=== PATIENT | female | born 1945 | race Caucasian/White ===

== ENCOUNTER 2024-04-15 05:46 | Outpatient (REF) | payer MEDICARE, SELFPAY ==
[2024-04-15 05:52] LABS: MANUAL DIFF FLAG NO
[2024-04-15 06:20] LABS: Basophils Absolute Auto 0.1 X10*3/uL (0.0-0.2); Basophils Percent Auto 2.1 % (0-2); Eosinophils Absolute Auto 0.4 X10*3/uL (0.0-0.4); Eosinophils Percent Auto 8.3 % (0-4); Hematocrit 31.4 % (37.0-47.0); Hemoglobin 10.2 g/dl (12.0-16.0); Imm Gran Abs Auto 0.02 X10*3/uL (0.00-0.03); Imm Gran Pct Auto 0.4 % (0.0-0.4); Lymphocytes Absolute Auto 0.5 X10*3/uL (1.2-4.9); Lymphocytes Percent Auto 9.1 % (20-40); Mean Corpuscular HGB Conc 32.5 g/dl (31.0-35.0); Mean Corpuscular Hemoglobin 31.6 pg (27.0-33.0); Mean Corpuscular Volume 97.2 fL (80.0-98.0); Mean Platelet Volume 10.5 fL (9.4-12.3); Monocytes Absolute Auto 0.7 X10*3/uL (0.1-1.2); Monocytes Percent Auto 13.4 % (2-11); Neutrophils Absolute Auto 3.4 x10*3/uL (2.0-8.3); Neutrophils Percent Auto 66.7 % (45-73); Platelet Count 197 X10*3/uL (160-400); Red Blood Count 3.23 X10*6/uL (4.20-5.50); Red Cell Distribution Width 18.4 % (11.0-16.0); White Blood Count 5.2 X10*3/uL (4.8-10.8)
[2024-04-15 07:14] LABS: Alanine Aminotransferase < 6 U/L (0-31); Albumin Level 3.6 g/dL (3.5-5.0); Alkaline Phosphatase 61 U/L (39-117); Anion Gap 19 (12-20); Aspartate Amino Transferase 28 U/L (5-31); Bilirubin Total 0.7 mg/dL (0.0-1.0); Blood Urea Nitrogen 42 mg/dL (9-16); Calcium 8.9 mg/dL (8.4-10.2); Carbon Dioxide 23 mmol/L (22-29); Chloride 95 mmol/L (96-108); Glucose Random 94 mg/dL (60-115); Potassium 4.8 mmol/L (3.3-5.1); Sodium 132 mmol/L (135-145); Total Protein 5.9 g/dL (6.5-8.0)
[2024-04-15 07:23] LABS: Estimated Glomerular Filt Rate 7
--- OUTSIDE RECORDS SUMMARY | 2024-04-17 12:16 | XMS_ITS | Continuity of Care Document ---
Author Organization [employer] ter Address [address] [place] [id number] Care Team Providers Care Senior Business Consultant Name Role Phone Vernon ANTOINE, Gio Rosales Primary Care Physician Encounter [facility] Date(s): 04/08/24 - 04/13/[address] [id number] Discharge Disposition: A-Transfer SNF Attending Physician: Maci Cheung MD Admitting Physician: Cheryl De Guzman MD Referring Physician: Not on Staff, Referring MD Encounter Type: Disch IP Allergies, Adverse Reactions, Alerts No Known Allergies Immunizations Given and Recorded Vaccine Date Status Refusal Reason influenza virus vaccine, inactivated 02/09/22 Willy rded influenza virus vaccine, inactivated 02/16/21 Willy rded SARS-CoV-2 (COVID-19) Ad26 vaccine 08/07/20 Record ed hepatitis B adult vaccine 04/13/20 Recorded hepatitis B adult vaccine 03/09/20 Recorded hepatitis B adult vaccine 01/20/20 Recorded hepatitis B adult vaccine 10/22/19 Recorded hepatitis B adult vaccine 02/25/19 Recorded hepatitis B adult vaccine 01/23/19 Recorded pneumococcal 13-valent vaccine 01/05/19 Given Medications albuterol CFC free 90 mcg/inh inhalation aerosol 1, puffs, Inhalation, 4 times a day, PRN, # 18 Gm, Refills 0, Tot. Refills 0, Maintenance, 01/20/23 2:29:00 PM EDT, Aerosol, Route to Pharmacy Electronically, [id number], [facility]/pharmacy #[id number], 160, cm, 01/12/23 10:12:00 EDT, Height, 68.4, kg, 01/12/23 10:12:00 EDT, Dry Weight Start Date: 01/20/23 Stop Date: 02/03/23 Status: Ordered Quantity: 18.0 Unit: g Repeat number: 1 aspirin 81 mg oral delayed release tablet 81 mg, 1, tablet, By Mouth, Daily, # 30 tablet, Refills 0, Maintenance, 09/04/23 11:51:00 AM EDT, Partial fill upon patient request if the prescription is for a schedule II opioid drug. Start Date: 09/04/23 Status: Ordered Quantity: 30.0 Unit: tablet Repeat number: 1 Bortezomib See Instructions, weekly at oncology, 0 Refills, Maintenance, 04/08/24 8:39:00 PM EST, Partial fill upon patient request if the prescription is for a schedule II opioid drug. Start Date: 04/08/24 Status: Ordered Repeat number: 1 calcitriol 0.25 mcg oral capsule 1 capsule = 0.25 mcg, By Mouth, Daily, # 30 capsule, 0 Refills, Maintenance, 01/12/23 11:56:00 PM EDT, Capsule, Partial fill upon patient request if the prescription is for a schedule II opioid drug. Start Date: 01/12/23 Status: Ordered Quantity: 30.0 Unit: capsule Repeat number: 1 carvedilol 12.5 mg oral tablet 6.25 mg, Tablet, By Mouth, 04/13/24 9:00:00 AM EST Start Date: 04/13/24 Stop Date: 04/13/24 Status: Completed Repeat number: 1 carvedilol 12.5 mg oral tablet 6.25 mg, 0.5, tablet, By Mouth, Daily, # 135 tablet, Refills 3, Tot. Refills 3, Maintenance, 03/27/23 3:09:00 PM EST, Route to Pharmacy Electronically, [facility]/pharmacy #[id number], Partial fill upon patient request if the prescription is for a schedule II opioid drug., 160, cm, 03/27/23 14:36:00 EST, Height, 63.3, kg, 03/24/23 13:09:00 EST, Dry Weight Start Date: 03/27/23 Stop Date: 03/21/24 Status: Ordered Quantity: 135.0 Unit: tablet Repeat number: 4 clopidogrel 75 mg oral tablet 75 mg, 1, tablet, By Mouth, Daily, # 90 tablet, Refills 0, Maintenance, 01/04/24 1:02:00 PM EDT, Partial fill upon patient request if the prescription is for a schedule II opioid drug. Start Date: 01/04/24 Status: Ordered Quantity: 90.0 Unit: tablet Repeat number: 1 losartan 25 mg oral tablet 25 mg, 1, tablet, By Mouth, Daily, # 30 tablet, Refills 0, Maintenance, 09/04/23 11:52:00 AM EDT, Partial fill upon patient request if the prescription is for a schedule II opioid drug. Start Date: 09/04/23 Status: Ordered Quantity: 30.0 Unit: tablet Repeat number: 1 Pepcid AC Maximum Strength 20 mg oral tablet 20 mg, By Mouth, Daily, # 30 tablet, Refills 1, Tot. Refills 1, Maintenance, 03/09/19 11:50:43 AM EDT, Route to Pharmacy Electronically, [facility] 3 Start Date: 03/09/19 Status: Ordered Quantity: 30.0 Unit: tablet Repeat number: 2 Renvela 800 mg oral tablet = 1,600 mg, By Mouth, 3 times a day with meals, # 90 tablet, 2 Refills, Maintenance, 03/09/19 11:48:58 AM EDT, Tablet, [facility] 3 Start Date: 03/09/19 Status: Ordered Quantity: 90.0 Unit: tablet Repeat number: 3 rosuvastatin 5 mg oral capsule 1 capsule = 5 mg, By Mouth, Daily in AM, # 30 capsule, 0 Refills, Maintenance, 09/04/23 11:52:00 AM EDT, Capsule, Partial fill upon patient request if the prescription is for a schedule II opioid drug. Start Date: 09/04/23 Status: Ordered Quantity: 30.0 Unit: capsule Repeat number: 1 torsemide 20 mg oral tablet 4 tablet = 80 mg, By Mouth, Every Monday, Monday and Monday, TO BE GIVEN ON NON-DIALYSIS DAYS, 0Refills, Maintenance, 04/13/24 2:21:00 PM EST, Tablet, Partial fill upon patient request if the prescription is for a schedule II opioid drug. 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 Confirmed Active ESRD on dialysis Confirmed Active x 4 Confirmed Active History of endometrial cancer Confirmed Active Hyperlipidemia Confirmed Active Hypertension Confirmed Active Multiple myeloma Confirmed Active Troponin level elevated Confirmed Active Results Radiology Reports * Exam Date Time Procedure Performing Provider Status 04/11/24 1:17 PM IR End of Case Report Mod ified IR End of Case Report * Exam Date Time Procedure Performing Provider Status 04/11/24 1:17 PM IR Venogram Upper Extremity Auth (Verified) Notes: (IR Venogram Upper Extremity) Reason For Exam: Evaluate for dialysis access;Other: IR Venogram Upper Extremity Patient: MIMI WRAY Study Date: 04/11/2024 Performing: Luna Espinal MD Referring: : 1945 Age: 78 Gender: FEMALE Pre-procedure diagnosis and Indication: 78-year-old female with history of end-stage renal disease secondary to multiple myeloma who recently underwent placement of a tunneled dialysis catheter via the right internal jugular vein on 04/10/2024 and has been initiated on hemodialysis. She also has history of hypertension, hyperlipidemia and infiltrative cardiomyopathy with reduced EF. Interventional radiology was consulted for bilateral upper extremity venography for evaluation of fistula creation. She also presents for image guided paracentesis due to history of ascites, which may be due to nephrotic syndrome versus cardiogenic cause. She does not have a history of cirrhosis. PROCEDURE: The procedure, risks, and alternatives were discussed with the patient and all questions were answered. Written informed consent obtained. Accompanying paperwork was verified for accuracy. Directed history and physical exam performed prior to the procedure. Medication reconciliation performed by nursing personnel. The patient was brought to the procedure suite and positioned supine on the table. A critical pause was performed with assisting personnel just prior to the procedure with the patient's identity confirmed using 2 identifiers and confirming procedure site and side. Right upper extremity venography: Venography of the right upper extremity was performed by injecting contrast via the IV in the right forearm. The cephalic vein is diminutive in the forearm. The median vein of the forearm and basilic vein are patent. In the arm, the brachial veins and basilic vein are patent. The cephalic vein is not visualized. The axillary and subclavian vein are patent. However, there is no free flow of contrast into the SVC. Although this may be partially related to existing dialysis catheter, this is also suggestive of central venous stenosis or occlusion at the confluence of the right subclavian vein and right internal jugular vein. Left upper extremity venography: Venography of the left upper extremity was performed by injecting contrast via the IV in the left forearm. The brachial and basilic veins are patent. The cephalic vein is patent in the distal arm and there is anastomosis of the cephalic vein with the brachial vein at the mid arm. The axillary and subclavian veins are patent. There is diminished flow through the left brachiocephalic vein into the SVC suggestive of central venous stenosis. However, no evidence of any significant collaterals. Ultrasound-guided paracentesis: Pre procedure limited US of the right abdomen was performed which demonstrates moderate volume ascites. An appropriate site was selected and marked. The skin was draped and prepped in usual sterile fashion. Procedure was performed using a cap, sterile gloves, a large sterile sheet, hand hygiene and 2% chlorhexidine for cutaneous antisepsis. 1% lidocaine was administered for local anesthesia. Under direct ultrasound guidance, a 5 Welsh Yueh needle was advanced into the ascites via the right lower quadrant. Approximately 1250 mL of tiffanie fluid was removed. The Yueh needle catheter was removed. Samples were submitted for the requested studies. Post procedure limited ultrasound images demonstrate significantly decreased ascites and no evidence of hematoma. Hemostasis was achieved and a sterile dressing was applied. The estimated blood loss was minimal. The patient tolerated the procedure well without immediate post procedure complications. The sterile field was maintained throughout the procedure and patient tolerated the procedure well with no complications of the procedure estimated blood loss was minimal Specimens/samples: a sample of abdominal ascites was sent Impression: 1. Right upper extremity venogram demonstrates patent brachial and basilic veins, however the cephalic vein is not visualized. The right axillary and subclavian veins are patent, however there is no free flow of contrast into the SVC. Although this may partially be related to the existing dialysis catheter, this is also suggestive of central venous stenosis or occlusion at the confluence of the right subclavian vein and right internal jugular vein. 2. Left upper extremity venogram demonstrates patent veins in the arm. The left axillary and subclavian veins are patent. There is diminished flow through the left brachiocephalic vein into the SVC suggestive of central venous stenosis. However, no evidence of any significant collaterals. CTV chest can be considered for further evaluation as clinically indicated. 3. Ultrasound-guided paracentesis performed via the right lower quadrant with removal of 1250 mL of tiffanie fluid. Samples were submitted for the requested studies. Fluid drained: 1250 ml's of Yellow fluid Fluoroscopy time and dose Total Fluoro Time: 0.6 mins Total dose 58 mGy Total DAP 1912.0 - ?Gy/m2 Contrast used Contrast used: IsoVue_300 65 Local Anesthetic Lidocaine 1% 7 ml's SQ Signed By Luna Espinal MD On 04/11/2024 5:40:48 PM Luna Espinal MD Dictated By: Luna Espinal MD Dictated Date/Time: 04/11/24 1:17 pm Reviewed By: Luna Espinal MD Signed By: Luna Espinal MD Signed Date/Time: 04/11/24 1:17 pm Transcribed By: BRIELLE Transcribed Date/Time: 04/11/24 1:17 pm * Exam Date Time Procedure Performing Provider Status 04/10/24 12:05 PM C-Arm < 1 Hour Tiffanie Bell; Luciana fiharoldo Notes: (C-Arm < 1 Hour) Reason For Exam: HEMODIALYSIS CATH RESULT: C-Arm < 1 Hour C-Arm < 1 Hour INDICATION: Reason: HEMODIALYSIS CATH COMPARISONS: None TECHNIQUE: Fluoroscopy support was provided. There was no radiologist in attendance. FLUOROSCOPY TIME: 28.4 seconds EXPOSURE: 1.3281 Gycm2 (Dose Area Product) TECHNOLOGIST TIME: 45 minutes FINDINGS: Fluoroscopy support was provided. There was no radiologist in attendance. IMPRESSION: See above. WSN: [id number] Ordering Physician: Arnaldo Alvarez Dictated By: Dale Patel MD Dictated Date/Time: 04/10/24 6:23 pm Reviewed By: Dale Patel MD Signed By: Dale Patel MD Signed Date/Time: 04/10/24 6:23 pm Transcribed By: CSShira Transcribed Date/Time: 04/10/24 4:44 pm * Exam Date Time Procedure Performing Provider Status 04/09/24 4:40 PM US Ascites Sereda , Dayana; Auth (V erified) Notes: (US Ascites) Reason For Exam: Ascites RESULT: US Ascites US Ascites Reason: Ascites; Clinical Question(s): Ascites; Order Comment: US Abdomen Ltd Prep COMPARISON: CT Abdomen and Pelvis 03/15/2024. TECHNIQUE: Grayscale limited abdominal ultrasound of the 4 quadrants. FINDINGS: Moderate volume ascites in all quadrants. Largest pocket in the left lower quadrant. IMPRESSION: Moderate volume ascites. WSN: [id number] Ordering Physician: Eleanor Berry Dictated By: Kendy Glynn MD Dictated Date/Time: 04/09/24 5:00 pm Reviewed By: Kendy Glynn MD Signed By: Kendy Glynn MD Signed Date/Time: 04/09/24 5:00 pm Transcribed By: BRONSON Transcribed Date/Time: 04/09/24 4:46 pm Vital Signs Most recent to oldest [Reference Range]: 1 2 3 Height 160 cm (04/13/24 10:20 AM) 160 cm (04/13/24 2:57 AM) 160 cm (04/12/24 9:20 PM) Weight 60.4 kg (04/13/24 3:01 AM) 59.6 kg (04/12/24 6:49 AM) 61 kg (04/11/24 4:48 AM) Oxygen Saturation [94-100 %] 100 % (04/13/24 10:20 AM) 97 % (04/13/24 2:57 AM) 100 % (04/12/24 9:20 PM) Pulse Rate [55-90 bpm] 75 bpm (04/13/24 11:23 AM) 76 bpm (04/13/24 10:20 AM) 92 bpm *H* (04/13/24 9:36 AM) Body Mass Index [18.5-24.99 kg/m2] 23.83 kg/m2 (04/11/24 4:48 AM) 21.88 kg/m2 (04/10/24 9:20 AM) 21.88 kg/m2 (04/10/24 5:52 AM) Blood Pressure [90-138/55-84 mm Hg] 134/68mm Hg (04/13/24 11:23 AM) 134/68mm Hg (04/13/24 10:20 AM) 142/107mm Hg *H* (04/13/24 9:36 AM) Respiratory Rate [16-30 br/min] 18 br/min (04/13/24 10:20 AM) 22 br/min (04/13/24 9:36 AM) 17 br/min (04/13/24 2:57 AM) Temperature [96.8-100.4 DegF] 97.8 DegF (04/13/24 10:20 AM) 97.8 DegF (04/13/24 9:36 AM) 97.7 DegF (04/13/24 2:57 AM) Liters per Minute 6 L/min (04/10/24 2:00 PM) 6 L/min (04/10/24 1:45 PM) 6 L/min (04/10/24 1:30 PM) Mode of Delivery (Oxygen) Room air (04/13/24 10:20 AM) Room air (04/13/24 2:57 AM) Room air (04/12/24 9:20 PM) Blood pressure sites Arm, left (04/13/24 10:20 AM) Arm, left (04/13/24 2:57 AM) Arm, left (04/12/24 9:20 PM) Temperature Route Oral (04/13/24 10:20 AM) Oral (04/13/24 2:57 AM) Oral (04/12/24 9:20 PM) Dry Weight 56 kg (04/10/24 5:52 AM) 56.3 kg (04/09/24 5:16 AM) Weight Obtained Via Bed scale (04/11/24 4:48 AM) Bed scale (04/10/24 5:52 AM) Bed scale (04/09/24 5:16 AM) Dry Weight Obtained Via Bed scale (04/10/24 5:52 AM) Bed scale (04/09/24 5:16 AM) Social History Social History Type Response Smoking Status Former smoker; Other : late teens early 20's; entered on: 03/25/14 Sex Sex Representation Female (finding) Consult note * Deidre Paul MD: MODIFY, PERFORM, MODIFY Event Display: Consult Authored Date: [id number] Patient: ??MIMI WRAY ? Age:??78 Years?Sex:??Female?:??1945?? Chief Complaint/Reason for Consult PermCath Placement History of Present Illness Mimi is a 78 year old female with a history of ESRD requiring HD TTS, endometrial cancer s/p totalhysterectomy, multiple myeloma??on chemotherapy, HTN,??HLD, and infiltrative cardiomyopathy with reduced EF??who presented to [facility] on 04/08 with concerns of worsening abdominal distention and shortness of breath. Per chart review, patient was previously seen and treated at [facility] from 03/16- with new onset ascites requiring paracentesis on 03/18 with 2.6L serous fluid drained. She was brought to for paracentesis at [place] yesterday, though on arrival to the IRsuite was found to be hypoxic with saturations in the 80s for which she was transferred to [facility]. Here, she has been stable on room air though does have electrolyte imbalances secondary to ESRD. She isdue for dialysis today, for which she was brought to dialysis unit at which point RIJ PermCath was noted to be dislodged from body.??Transplant surgery??has been consulted for PermCath placement.??Patient is unable to recall what happened or if she received dialysis today. She is unable to elicit what happened with her dialysis catheter and when or how it became dislodged.??She does have??food atbedside. Subjective information difficult to obtain, patient shakes her head??in response to most questions. She is responsive though slow to respond and appearing very??lethargic. ?? Review of Systems Limited review of systems per above. Physical Exam Vitals & Measurements T:??97.3?F?? HR:??72??(Peripheral)?? RR:??18?? BP:??121/84?? SpO2:??97%?? HT:??160??cm?? WT:??56.3??kg?? BMI:??21.99?? GENERAL: No acute distress. Non-toxic though appearing very fatigued and confused, slow to respond but is interactive. HEENT: Normocephalic. Atraumatic. Trachea midline. RESPIRATORY: Equal and symmetric chest rise bilaterally; no increased work of breathing. On room air. CHEST: Right sided PermCath insertion site is clean, no evidence of erythema or underlying hematoma. No ecchymosis. Overlying bandage is clean and intact. Soft to palpation. No drainage. ABDOMEN: Soft to palpation. Distended. MUSCULOSKELETAL: Moving all extremities equally. SKIN: Warm and well perfused. NEURO: AOx3 Assessment/Plan Mimi is a 78 year old female with a history of ESRD requiring HD TTS, endometrial cancer s/p totalhysterectomy, multiple myeloma??on chemotherapy, HTN,??HLD, and infiltrative cardiomyopathy with reduced EF??who presented to [facility] on 04/08 with concerns of worsening abdominal distention and shortness of breath. Transplant surgery was consulted for hemodialysis access as her PermCath was found to be dislodged today while going to the dialysis unit. She is hemodynamically stableand afebrile, though she does appear lethargic. She has no leukocytosis, H/H is stable. Hyperkalemic to 6 otherwise electrolytes largely within normal limits. Cr 6.87. We will plan to add her on to the OR board for PermCath placement tomorrow. In the meantime, her hyperkalemia should be treated medically and if the need arises, with temporary dialysis access via [place] while we await OR in AM. ?? Recommendations: - NPO at SD for OR in the AM - Treat hyperkalemia prior to operation - Dialysis post operatively ?? Patient was discussed with Dr. Davis Please page [phone] with questions and concerns. 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 ESRD on dialysis History of endometrial cancer Hyperlipidemia Hypertension Multiple myeloma Nonischemic cardiomyopathy Procedure/Surgical History PRIYANKA-BSO T+A Foot- bunion PermCath placement 01/2023 Home Medications Albuterol: 1 puffs, Inhalation, 4 times a day, PRN (as needed for wheezing) Aspirin: 81 mg = 1 tablet, By Mouth, Daily Bortezomib: See Instructions, weekly at oncology Calcitriol: 0.25 mcg = 1 capsule, By Mouth, Daily Carvedilol: 6.25 mg = 0.5 tablet, By Mouth, Daily Clopidogrel: 75 mg = 1 tablet, By Mouth, Daily Famotidine: 20 mg, By Mouth, Daily Losartan: 25 mg = 1 tablet, By Mouth, Daily Rosuvastatin: 5 mg = 1 capsule, By Mouth, Daily in AM Sevelamer: 1,600 mg, By Mouth, 3 times a day with meals Allergies NKA Social History Alcohol Use: Never. Employment/School Status: Retired. Exercise Self assessment: Good condition. Home/Environment Living situation: Home/Independent. Lives with: Spouse. Nutrition/Health Diet: Regular. Sexual Gender identity: Female. Substance Abuse Use: Never. Tobacco Former smoker, Other: late teens early 20's. Family History Mother: Arrhythmia; Cancer of lung; Thyroid disease Father: Diabetes mellitus type II; Liver disease Other: Liver disease Other: Cancer of breast Lab Results Labs Last 24 Hours BLOOD COUNT & DIFF ? Event Name?? Event Result?? Date/Time?? WBC 7.3 k/mm3 04/09/24 01:52:00 RBC 3.54 m/mm3??Low 04/09/24 01:52:00 Hgb 11.2 Gm/dL??Low 04/09/24 01:52:00 Hct 34.4 %??Low 04/09/24 01:52:00 MCV 97.2 femtoliters 04/09/24 01:52:00 MCH 31.6 pg 04/09/24 01:52:00 MCHC 32.6 Gm/dL??Low 04/09/24 01:52:00 Platelet Count 296 k/mm3 04/09/24 01:52:00 MPV 11.2 femtoliters 04/09/24 01:52:00 Nucleated RBC (Automated) 0 #/100 WBC'S 04/09/24 01:52:00 ? CHEM GENERAL ? Event Name?? Event Result?? Date/Time?? Sodium 136 mmol/L 04/09/24 01:52:00 Chloride 95 mmol/L??Low 04/09/24 01:52:00 Bicarbonate Level 22 mmol/L 04/09/24 01:52:00 Anion Gap 19??High 04/09/24 01:52:00 Glucose Level 107 mg/dL??High 04/09/24 01:52:00 BUN 49 mg/dL??High 04/09/24 01:52:00 Creatinine-Blood 6.87 mg/dL??High 04/09/24 01:52:00 Magnesium 2.6 mg/dL??High 04/09/24 01:52:00 Alkaline Phosphatase 82 units/L 04/09/24 01:52:00 AST (SGOT) 18 units/L 04/09/24 01:52:00 ALT (SGPT) 15 units/L 04/09/24 01:52:00 Bilirubin, Total 0.6 mg/dL 04/09/24 01:52:00 Bilirubin, Direct 0.3 mg/dL 04/09/24 01:52:00 Bilirubin, Indirect 0.3 mg/dL 04/09/24 01:52:00 ? * Kadeem Davis DO: PERFORM Event Display: Consult Authored Date: Patient seen and examined at bedside, chart reviewed and discussed with resident.?? Agree with resident assessment and plan with the following additions.?? Patient treated medically for hyperkalemia.?? Will plan for OR tomorrow for permcath placement.?? NPO after midnight. * Carolyn Parrish NP: PERFORM, MODIFY Event Display: Consultation Note Authored Date: Patient: ??MIMI WRAY ? Age:??78 Years?Sex:??Female?:??1945?? Attending:??Inocencio Peterson MD Admission Date: 04/08/2024 ?? Chief Complaint and Reason for Consultation Assistance with the management of ESRD and HD needs. ?? History of Present Illness Ms. Wray is a 78-year-old female with end-stage renal disease due to multiple myeloma, receiving maintenance in center hemodialysis via tunneled right IJ dialysis catheter every Monday, , Monday in [facility] with advanced systolic heart failure. She presented to [facility] [place]04/08 with a chief complaint of a fall following which she became short of breath and was transferred down to [facility] for evaluation.?? We have been consulted in order to manage her dialysis needs while admitted. ?? 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 Medications: Home Medications (10) Active albuterol CFC free 90 mcg/inh inhalation aerosol??1 puffs, PRN, Inhalation, 4 times a day aspirin 81 mg oral delayed release tablet??81 mg = 1 tablet, By Mouth, Daily Bortezomib??See Instructions calcitriol 0.25 mcg oral capsule??0.25 mcg = 1 capsule, By Mouth, Daily carvedilol 12.5 mg oral tablet??6.25 mg = 0.5 tablet, By Mouth, Daily clopidogrel 75 mg oral tablet??75 mg = 1 tablet, By Mouth, Daily losartan 25 mg oral tablet??25 mg = 1 tablet, By Mouth, Daily Pepcid AC Maximum Strength 20 mg oral tablet??20 mg, By Mouth, Daily Renvela 800 mg oral tablet??1,600 mg, By Mouth, 3 times a day with meals rosuvastatin 5 mg oral capsule??5 mg = 1 capsule, By Mouth, Daily in AM ?? FH: Reviewed and non-contributory ?? Social: Reviewed ?Review of Systems Const: no fever, no chills HEENT: no dizziness, no headaches, no vision changes Resp: no SOB, no wheezing, no cough CV: no chest pain, no palpitations, no edema, no orthopnea, no syncope GI: no abdominal pain, no n/v, no diarrhea, no constipation, no melena, no hematochezia : no dysuria, no hematuria MSK: no myalgias, no DROM, no back pain Neuro: no paresthesias, no focal weakness?? Skin: no rashes Heme: No easy bruising, no bleeding or clotting tendency ?? 02/14 systems were reviewed and were negative for any positive or negative complaint, except as mentioned above. ?? Objective Vital Signs (last 24 hrs) ?Last Charted Heart Rate Peripheral?79 bpm ??(DEC 03 05:16) Resp Rate?18 br/min ??(DEC 03 05:16) SBP?115 mm Hg ??(DEC 03 05:16) DBP?74 mm Hg ??(DEC 03 05:16) SpO2?99 % ??(DEC 03 05:16) Weight?56.3 kg ??(DEC 03 05:16) Height?160 cm ??(DEC 03 05:16) BMI?21.99 ??(DEC 03 05:16) Intake?? Output?? Oral Fluids: 0 mL (04:00) Urine Count: 1 (05:00) Stool Frequency: 0 (05:00) ?? Intake/Output?? 04/08 17:36 04/09 07:00 04/08 07:00 12 07:00 04/06 07:00 ?? 04/09 07:59 04/09 07:59 04/09 06:59 04/08 06:59 04/07 06:59 Intake ?360 ?0 ?360 ?0 ?0 Output ?0 ?0 ?0 ?0 ?0 Net Total ?360 ?0 ?360 ?0 ?0 Urine Count ?3 ?0 ?3 ?0 ?0 ? Physical Exam General: ??NAD, AAOx4 HEENT: NCAT, MMM Neck: no JVD Cardio: normal S1 snd S2, no MRG, RRR Resp: CTAB Abdo: NT, ND, Extremities: No peripheral edema, Skin: No rashes or other abnormalities Neuro: Grossly intact ?? BLOOD COUNT & DIFF WBC 7.3 k/mm3 ()?? 04/09/2024 01:52 RBC 3.54 m/mm3 (Low)?? 04/09/2024 01:52 Hgb 11.2 Gm/dL (Low)?? 04/09/2024 01:52 Hct 34.4 % (Low)?? 04/09/2024 01:52 MCV 97.2 femtoliters ()?? 04/09/2024 01:52 MCH 31.6 pg ()?? 04/09/2024 01:52 MCHC 32.6 Gm/dL (Low)?? 04/09/2024 01:52 Platelet Count 296 k/mm3 ()?? 04/09/2024 01:52 RDW-SD 68.5 femtoliters (High)?? 04/09/2024 01:52 MPV 11.2 femtoliters ()?? 04/09/2024 01:52 Nucleated RBC (Automated) 0.0 #/100 WBC'S ()?? 04/09/2024 01:52 Abs. NRBC 0.0 k/mm3 ()?? 04/09/2024 01:52 Abs. Neut 4.2 k/mm3 ()?? 04/08/2024 10:06 Abs. Lymph 0.5 k/mm3 (Low)?? 04/08/2024 10:06 Abs. Collier 0.7 k/mm3 ()?? 04/08/2024 10:06 Abs. Eo 0.3 k/mm3 ()?? 04/08/2024 10:06 Abs. Baso 0.1 k/mm3 ()?? 04/08/2024 10:06 Neut % 73.0 % ()?? 04/08/2024 10:06 Lymph % 7.9 % (Low)?? 04/08/2024 10:06 Collier % 12.6 % (High)?? 04/08/2024 10:06 Eos % 4.9 % ()?? 04/08/2024 10:06 Baso % 1.2 % ()?? 04/08/2024 10:06 Imm Gran 0.4 % ()?? 04/08/2024 10:06 Abs. Imm Gran 0.0 k/mm3 ()?? 04/08/2024 10:06 ?? CARDIAC Nt-Probnp >55773 pg/mL (High)?? 04/08/2024 10:06 ?? CHEM GENERAL Sodium 136 mmol/L ()?? 04/09/2024 01:52 Potassium 6.0 mmol/L (High)?? 04/09/2024 01:52 Chloride 95 mmol/L (Low)?? 04/09/2024 01:52 Bicarbonate Level 22 mmol/L ()?? 04/09/2024 01:52 Anion Gap 19 (High)?? 04/09/2024 01:52 Glucose Level 107 mg/dL (High)?? 04/09/2024 01:52 Hemoglobin A1C (Monitoring) 6.2 % (High)?? 04/09/2024 01:52 BUN 49 mg/dL (High)?? 04/09/2024 01:52 Creatinine-Blood 6.87 mg/dL (High)?? 04/09/2024 01:52 Estimated GFR Creatinine 6 ML/MIN/1.73 M2 ()?? 04/09/2024 01:52 Calcium 9.7 mg/dL ()?? 04/09/2024 01:52 Magnesium 2.6 mg/dL (High)?? 04/09/2024 01:52 Protein, Total 5.9 Gm/dL (Low)?? 04/09/2024 01:52 Albumin 3.7 Gm/dL ()?? 04/09/2024 01:52 AG Ratio 1.4 ()?? 04/08/2024 10:06 Alkaline Phosphatase 82 units/L ()?? 04/09/2024 01:52 AST (SGOT) 18 units/L ()?? 04/09/2024 01:52 ALT (SGPT) 15 units/L ()?? 04/09/2024 01:52 Bilirubin, Total 0.6 mg/dL ()?? 04/09/2024 01:52 Bilirubin, Direct 0.3 mg/dL ()?? 04/09/2024 01:52 Bilirubin, Indirect 0.3 mg/dL ()?? 04/09/2024 01:52 Estimated Average Glucose 131 mg/dL ()?? 04/09/2024 01:52 ?? COAG INR 1.1 ()?? 04/08/2024 10:06 Protime (PT) 11.9 seconds (High)?? 04/08/2024 10:06 ?? FLUID STUDIES Hold Other SPECIMEN DISCARDED AFTER 1 WEEK ()?? 04/08/2024 10:06 ?? MISC. CHEMISTRY Hold Gel Top SPECIMEN DISCARDED AFTER 1 WEEK ()?? 04/08/2024 10:06 ?? URINE OTHER Est Creatinine Clearance 5.76 mL/min ()?? 04/09/2024 05:17 ?? VIROLOGY Influenza A PCR NEGATIVE ()?? 04/08/2024 13:50 Influenza B PCR NEGATIVE ()?? 04/08/2024 13:50 RSV PCR NEGATIVE ()?? 04/08/2024 13:50 COVID-19 PCR Specimen Source NASAL ()?? 04/08/2024 13:50 COVID-19 PCR Result NEGATIVE ()?? 04/08/2024 13:50 ?? No qualifying data available ? Assessment/Plan Ms. Wray is a 78-year-old female with end-stage renal disease due to multiple myeloma, receiving maintenance in center hemodialysis via tunneled right IJ dialysis catheter every Monday, , Monday in [facility] with advanced systolic heart failure. [place] [facility] [place]04[place] with a chief complaint of a fall following which she became short of breath and was transferred down to [facility] for evaluation.?? We have been consulted in order to manage her dialysis needs while admitted. ?? 1. ESRD on HD - access: R IJ PermCath - schedule: T/T/S at [facility] - presented with volume overload ?? 2. Fall ?? 3. Abdominal Distension - planning on paracentesis today ? Plan - will do HD on T/T/S schedule while admitted - planned for paracentesis ?? Case discussed with Dr. Lazcano. Thank you for allowing us to participate in your patient's care. ?? Carolyn Parrish [facility]- [facility] ? * Carolyn Parrish NP: PERFORM Event Display: Consultation Note Authored Date: Pt arrived to dialysis this AM and was found to have PermCath unexplainably removed from her body.?? Pt could not speak to how this happened.?? In any case, transplant surgery has been contacted and they have been gracious enough to add her on to the schedule tomorrow.?? Will give Lokelma 10g Q8H all evening in preparation for the OR tomorrow.?? Please make NPO after midnight.?? Admission evaluation note * Leah KNOX, Becca Ma: PERFORM Event Display: Admission Note Authored Date: Patient: ??MIMI WRAY ? Age:??78 Years?Sex:??Female?:??1945?? Chief Complaint/Reason for Consultation Abdominal distention/ascites History of Present Illness Ms. Wray is a??78-year-old female with past medical history of ESRD on dialysis, CAD, history of endometrial cancer status post hysterectomy, multiple myeloma on bortezomib, hypertension, hyperlipidemia, infiltrative cardiomyopathy with reduced ejection fraction, who presented to the [place] ED today complaining of abdominal distention.?? Patient had recently been admitted to our facility from 03/16 - 03/20 for new onset ascites, at which time paracentesis was performed and 03/18, with 2600 mL of clear yellow ascites drained.?? It was suspected that ascites is due to nephrotic syndrome at that time, versus cardiac etiology: Patient has no history of alcohol use or liver disease.?? Patient reports that since discharge, her abdomen has slowly been becoming more distended.?? She denies any abdominal pain.?? She also reports shortness of breath for about 1??month, and 1 week of cough.?? She reports urinary frequency for 1 month, but denies dysuria.?? Because of her symptoms, she presented to [place] today for evaluation. There, vital signs were stable.?? Laboratory studies showed WBC 5.7, H&H 10.7/33.9, INR 1.1, potassium 5.7, glucose 157, BUN 42, creatinine 6.58, BNP greater than 70,000.?? Chest x-ray was obtained which showed no acute abnormality.?? Plan had been for paracentesis at their facility, however when she was taken to , she became hypoxic and short of breath with SpO2 in the mid 80s.?? Because of this, paracentesis was not performed, and request was made for transfer to [facility]. On arrival at our facility, patient was stable with SpO2 100% on room air.?? At the time of my evaluation, she complains of abdominal distention, shortness of breath, cough, occasional posttussive emesis, and urinary frequency.?? She describes coughing when she eats, which causes her to vomit.?? She denies any abdominal pain. Review of Systems General: Denies lightheadedness, dizziness HEENT:?? Denies headache, runny nose, sore throat Cardiac:?? Denies chest pain or palpitations Respiratory:??Endorses shortness of breath and cough Abdomen:??Endorses abdominal distention, occasional vomiting, denies nausea, abdominal pain, diarrhea, or constipation :?? Denies hematuria or dysuria, endorses urinary frequency Skin:?? Denies rashes or wounds Objective Measurements?? Height: 160 cm (04/08/24) ?? Vital Signs?? Temperature: 97.7 DegF (04/08/24 17:52:00) Temperature: 97.7 DegF (04/08/24 17:52:00) Temperature Route: Oral (04/08/24 17:52:00) Temperature Route: Oral (04/08/24 17:52:00) Pulse Rate: 78 bpm (04/08/24 17:52:00) Pulse Rate: 78 bpm (04/08/24 17:52:00) Respiratory Rate: 17 br/min (04/08/24 17:52:00) Respiratory Rate: 17 br/min (04/08/24 17:52:00) Systolic Blood Pressure: 129 mm Hg (04/08/24 17:52:00) Systolic Blood Pressure: 129 mm Hg (04/08/24 17:52:00) Diastolic Blood Pressure: 82 mm Hg (04/08/24 17:52:00) Diastolic Blood Pressure: 82 mm Hg (04/08/24 17:52:00) Blood pressure sites: Arm, left (04/08/24 17:52:00) Blood pressure sites: Arm, left (04/08/24 17:52:00) Mean Arterial Pressure: 98 mm Hg (04/08/24 17:52:00) Mean Arterial Pressure: 98 mm Hg (04/08/24 17:52:00) Pulse Pressure: 47 mm Hg (04/08/24 17:52:00) Pulse Pressure: 47 mm Hg (04/08/24 17:52:00) Oxygen Saturation: 100 % (04/08/24 17:52:00) Oxygen Saturation: 100 % (04/08/24 17:52:00) Mode of Delivery (Oxygen): Room air (04/08/24 17:52:00) Mode of Delivery (Oxygen): Room air (12/02/24 17:52:00) Early Warning Score: 2 (04/08/24 17:53:29) ? Intake/Output? 04/08 17:36 04/08 07:00 04/07 07:00 04/06 07:00 ?? 04/08 22:31 04/08 22:31 04/08 06:59 04/07 06:59 Urine Count ?1 ?1 ?0 ?0 ? Precautions No Precautions documented.? Physical Exam Physical Exam: General: No apparent distress, appears stated age, awake, alert, cooperative with exam Head/Neck/Throat: Normocephalic, atraumatic, moist mucous membranes Eyes: Sclera anicteric, EOMI Thorax: Clear to auscultation bilaterally, no respiratory distress Cardiovascular: Regular rate and rhythm, no murmurs rubs or gallops, no peripheral edema Abdomen: Soft, nontender, distended, normoactive bowel sounds Musculoskeletal: No gross bony deformities Skin: No rashes or wounds noted on exposed skin,??scattered bruising noted Neurologic: Alert and oriented x3, no focal neurological deficits, no facial droop Psychiatric: Flat affect Assessment/Plan Diagnoses 1. ??Ascites ??(R18.8) 2. ??Hypoxia ??(R09.02) 3. ??Hyperkalemia ??(E87.5) 4. ??ESRD on dialysis ??(N18.6) 5. ??CAD in inaja artery ??(I25.10) 6. ??Nonischemic cardiomyopathy ??(I42.8) 7. ??Multiple myeloma ??(C90.00) 8. ??Hypertension ??(I10) 9. ??Hyperlipidemia ??(E78.5) ?? Assessment:??78-year-old female with past medical history of ESRD on dialysis, CAD, history of endometrial cancer status post hysterectomy, multiple myeloma on bortezomib, hypertension, hyperlipidemia, infiltrative cardiomyopathy with reduced ejection fraction, who presented to the [place] ED today complaining of abdominal distention, noted to have ascites, transferred to[facility] ?? Ascites (R18.8):??Patient noted to have abdominal ascites on presentation to [place] today They were unable to perform paracentesis, as she became hypoxic at that time Do not suspect SBP, patient denies abdominal pain Prior notes state that ascites may be nephrotic syndrome versus cardiogenic, no history of cirrhosis -Paracentesis ordered -Fluid studies ordered -Holding aspirin and Plavix until after paracentesis ?? Hypoxia (R09.02):??Patient briefly hypoxic??with SpO2 to the 80s??at [place] In our facility,??has??been??98/100% on room air Reports she does occasionally use??oxygen at home as needed Chest x-ray??within normal??limits,??COVID/RSV/flu??negative Continue to monitor oxygen levels ?? Hyperkalemia (E87.5):??Potassium 5.7 today She was given Lokelma at [place] Plan for dialysis tomorrow Trend BMP ?? ESRD on dialysis (N18.6):??Nephrology consulted, patient??on TTS dialysis Tentative plan for dialysis tomorrow Continue calcitriol ?? CAD in inaja artery (I25.10) Nonischemic cardiomyopathy (I42.8) ? Holding home aspirin and Plavix??pending paracentesis Continue beta-rita ?? Multiple myeloma (C90.00):??Patient receives??maintenance??chemotherapy??bortezomib??weekly??with oncology ?? Hypertension (I10):??Continue home losartan 25 mg daily, carvedilol 6.25 mg twice daily ?? Hyperlipidemia (E78.5):??Continue home rosuvastatin 5 mg daily ?? Urinary frequency: Will check urinalysis ?? Dysphagia: Patient reporting??that she coughs when she eats, which sometimes causes her to vomit Will have swallow eval??performed ?? VTE Prophylaxis:??Pneumatic compression boots Holding home??aspirin, Plavix, and holding off on chemical??VTE prophylaxis??until after paracentesis ?VTE Prophylaxis Assessment:??VTE Prophylaxis Ordered ?? Discharge Planning:??Pending paracentesis, dialysis ?? Code Status:??DNR/DNI, confirmed with patient, MOLST form completed and placed in chart ?Order Code Status:??Code Status Ordered ?? I personally spent a total of??80 minutes reviewing the chart, notes, images, and labs, speaking with nurses, examining and interviewing the patient, placing orders, reconciling medications, and documenting in the medical record. ? Histories Allergies Allergies ?(Active and Proposed Allergies Only) NKA? (Severity: Unknown severity, Onset: Unknown) ? Past Medical History/Problem List Active Problems(9) CAD in inaja artery ESRD on dialysis x 4 History of endometrial cancer Hyperlipidemia Hypertension Multiple myeloma Nonischemic cardiomyopathy ? Past Surgical History PRIYANKA-BSO T+A Foot- bunion ? Social History Alcohol Details:??Use: Never. Employment/School Details:??Status: Retired. Exercise Details:??Self assessment: Good condition. Home/Environment Details:??Living situation: Home/Independent. ??Lives with: Spouse. Nutrition/Health Details:??Diet: Regular. Sexual Details:??Gender identity: Female. Substance Abuse Details:??Use: Never. Tobacco Details:??Former smoker, Other: late teens early 20's. ? Family History Mother: Arrhythmia; Cancer of lung; Thyroid disease Father: Diabetes mellitus type II; Liver disease Other: Liver disease Other: Cancer of breast (Aunt) ? Medications Home Medications Albuterol (albuterol CFC free 90 mcg/inh inhalation aerosol)?1?puff(s)?Inhalation?4 times a day?as needed?for 14?Days?as needed for wheezing Aspirin (aspirin 81 mg oral delayed release tablet)?81?Milligram?1?tablet?By Mouth?Daily Bortezomib?See Instructions?weekly at oncology Calcitriol (calcitriol 0.25 mcg oral capsule)?1?capsule?0.25?Microgram?By Mouth?Daily Carvedilol (carvedilol 12.5 mg oral tablet)?18.75?Milligram?1.5?tablet?By Mouth?Da basia?6.25?0.5 Clopidogrel (clopidogrel 75 mg oral tablet)?75?Milligram?1?tablet?By Mouth?Daily Famotidine (Pepcid AC Maximum Strength 20 mg oral tablet)?20?Milligram?By Mouth?Daily Losartan (losartan 25 mg oral tablet)?25?Milligram?1?tablet?By Mouth?Daily Rosuvastatin (rosuvastatin 5 mg oral capsule)?1?capsule?5?Milligram?By Mouth?Daily?Daily in AM Sevelamer (Renvela 800 mg oral tablet)?1,600?Milligram?By Mouth?3 times a day with meals ? Inpatient Medications Medications (15) Active SCHEDULED: (7) Calcitriol 0.25 mcg Capsule (calcitriol 0.25 mcg oral capsule) ??0.25 mcg, By Mouth, Daily Carvedilol 6.25 mg Tablet (carvedilol 12.5 mg oral tablet) ??6.25 mg, By Mouth, Daily Famotidine 20 mg Tablet (famotidine 20 mg oral tablet) ??20 mg, By Mouth, Daily Losartan 25 mg Tablet (losartan 25 mg oral tablet) ??25 mg, By Mouth, Daily NaCl 0.9% Flush 3ml (NaCL 0.9% Flush) ??3 mL, IV Push, Every 8 hours Rosuvastatin 5 mg Tablet (rosuvastatin 5 mg oral tablet) ??5 mg, By Mouth, Daily Sevelamer Carbonate 800 mg Tablet (Renvela 800 mg oral tablet) ??1,600 mg, By Mouth, 3 times a day with meals CONTINUOUS: (0) PRN: (8) Acetaminophen 325 mg Tablet (Acetaminophen Tablet) ??650 mg, By Mouth, Every 4 hours Dextromethorphan-Guaifenesin 20 mg-200 mg/10 mL Liqu UD (Robitussin DM Liquid) ??10 mL, By Mouth, Every 4 hours Docusate Sodium 100 mg Capsule (Docusate Sodium Capsule) ??100 mg 1 capsule, By Mouth, 2 times a day Melatonin 3 mg Tablet (Melatonin Tablet) ??3 mg, By Mouth, Daily at bedtime NaCl 0.9% Flush 3ml (NaCL 0.9% Flush) ??3 mL, IV Push, Every 8 hours Polyethylene Glycol 17 Gm Powder (MiraLax Powder) ??17 Gm 1 pack/packet, By Mouth, Daily Senna Tablet ??8.6 mg 1 tablet, By Mouth, 2 times a day Simethicone 80 mg Chewable Tablet (Simethicone Tablet) ??80 mg, Chew, 3 times a day ? Results Recent Labs BLOOD COUNT & DIFF WBC 5.7 k/mm3 ()?? 04/08/2024 10:06 RBC 3.35 m/mm3 (Low)?? 04/08/2024 10:06 Hgb 10.7 Gm/dL (Low)?? 04/08/2024 10:06 Hct 33.9 % (Low)?? 04/08/2024 10:06 MCV 101.2 femtoliters (High)?? 04/08/2024 10:06 MCH 31.9 pg ()?? 04/08/2024 10:06 MCHC 31.6 Gm/dL (Low)?? 04/08/2024 10:06 Platelet Count 246 k/mm3 ()?? 04/08/2024 10:06 RDW-SD 71.8 femtoliters (High)?? 04/08/2024 10:06 MPV 11.2 femtoliters ()?? 04/08/2024 10:06 Nucleated RBC (Automated) 0.0 #/100 WBC'S ()?? 04/08/2024 10:06 Abs. NRBC 0.0 k/mm3 ()?? 04/08/2024 10:06 Abs. Neut 4.2 k/mm3 ()?? 04/08/2024 10:06 Abs. Lymph 0.5 k/mm3 (Low)?? 04/08/2024 10:06 Abs. Collier 0.7 k/mm3 ()?? 04/08/2024 10:06 Abs. Eo 0.3 k/mm3 ()?? 04/08/2024 10:06 Abs. Baso 0.1 k/mm3 ()?? 04/08/2024 10:06 Neut % 73.0 % ()?? 04/08/2024 10:06 Lymph % 7.9 % (Low)?? 04/08/2024 10:06 Collier % 12.6 % (High)?? 04/08/2024 10:06 Eos % 4.9 % ()?? 04/08/2024 10:06 Baso % 1.2 % ()?? 04/08/2024 10:06 Imm Gran 0.4 % ()?? 04/08/2024 10:06 Abs. Imm Gran 0.0 k/mm3 ()?? 04/08/2024 10:06 ?? CARDIAC Nt-Probnp >42129 pg/mL (High)?? 04/08/2024 10:06 ?? CHEM GENERAL Sodium 138 mmol/L ()?? 04/08/2024 10:06 Potassium 5.7 mmol/L (High)?? 04/08/2024 10:06 Chloride 97 mmol/L (Low)?? 04/08/2024 10:06 Bicarbonate Level 28 mmol/L ()?? 04/08/2024 10:06 Anion Gap 13 ()?? 04/08/2024 10:06 Glucose Level 157 mg/dL (High)?? 04/08/2024 10:06 BUN 42 mg/dL (High)?? 04/08/2024 10:06 Creatinine-Blood 6.53 mg/dL (High)?? 04/08/2024 10:06 Estimated GFR Creatinine 6 ML/MIN/1.73 M2 ()?? 04/08/2024 10:06 Calcium 9.5 mg/dL ()?? 04/08/2024 10:06 Protein, Total 6.0 Gm/dL (Low)?? 04/08/2024 10:06 Albumin 3.5 Gm/dL ()?? 04/08/2024 10:06 AG Ratio 1.4 ()?? 04/08/2024 10:06 Alkaline Phosphatase 71 units/L ()?? 04/08/2024 10:06 AST (SGOT) 15 units/L ()?? 04/08/2024 10:06 ALT (SGPT) 11 units/L ()?? 04/08/2024 10:06 Bilirubin, Total 0.7 mg/dL ()?? 04/08/2024 10:06 ?? COAG INR 1.1 ()?? 04/08/2024 10:06 Protime (PT) 11.9 seconds (High)?? 04/08/2024 10:06 ?? FLUID STUDIES Hold Other SPECIMEN DISCARDED AFTER 1 WEEK ()?? 04/08/2024 10:06 ?? MISC. CHEMISTRY Hold Gel Top SPECIMEN DISCARDED AFTER 1 WEEK ()?? 04/08/2024 10:06 ?? URINE OTHER Est Creatinine Clearance 6.06 mL/min ()?? 04/08/2024 11:11 ?? VIROLOGY Influenza A PCR NEGATIVE ()?? 04/08/2024 13:50 Influenza B PCR NEGATIVE ()?? 04/08/2024 13:50 RSV PCR NEGATIVE ()?? 04/08/2024 13:50 COVID-19 PCR Specimen Source NASAL ()?? 04/08/2024 13:50 COVID-19 PCR Result NEGATIVE ()?? 04/08/2024 13:50 ? EKG study * Event Display: EKG Authored Date: * Event Display: ECG 12-Lead Authored Date: Please click on pdf link to open report * Event Display: ECG 12-Lead Authored Date: Ventricular Rate: 69 BPM Atrial Rate: 69 BPM P-R Interval: 190 ms QRS Duration: 122 ms Q-T Interval: 438 ms QTC Calculation(Bazett): 469 ms P [place]: 31 degrees R [place]: -50 degrees T [place]: 123 degrees Normal sinus rhythm Left anterior fascicular block Left ventricular hypertrophy with QRS widening and repolarization abnormality Cannot rule out Septal infarct , age undetermined Abnormal ECG When compared with ECG of 08-Apr-2024 14:00, MANUAL COMPARISON REQUIRED DATA IS UNCONFIRMED Confirmed by FREDDIE NELSON MD ([id number]) on 04/10/2024 7:43:52 AM [place]: FREDDIE NELSON MD Cardiology * Event Display: Cardiac Rhythm Strips Authored Date: Hospital Progress note * Agustin Nava MD, I: PERFORM, SIGN, VERIFY Event Display: Progress Note Hospital Authored Date: Patient: MIMI WRAY Age: 78 years Sex: Female : 1945 Associated Diagnoses: None Author: Agustin Nava MD, I Hospital Course Patient seen during: hemodialysis, On 04/13/2024 10:58:00 . Complaints: muscle cramps. Dialysate Prescription Potassium concentration 2 . Bicarbonate concentration 36 . Calcium concentration 2.5 . Blood volume monitor reviewed: yes. Sodium modeling: no. UF modeling: no. Dialystate temperature 35.5 . Heparin dose: none. Physical Examination Vitals Vitals : VITAL SIGNS SECTION 04/13/2024 10:20 EST Temperature 97.8 DegF Temperature Route Oral Pulse Rate 76 bpm Respiratory Rate 18 br/min Systolic Blood Pressure 134 mm Hg Diastolic Blood Pressure 68 mm Hg Blood pressure sites Arm, left Mean Arterial Pressure 90 mm Hg Pulse Pressure 66 mm Hg Oxygen Saturation 100 % Mode of Delivery (Oxygen) Room air . Physical Exam JVD: no. Cardiac: RRR. Abdomen/GI: soft. Extremities: no edema. Impression and Plan Impression: ESRD, Anemia. Plan: Continue Dialysis/ultrafiltration, Procrit on hold, Low potassium diet, Fluid restriction 1500 . * Smitha Barry RN: PERFORM, SIGN, VERIFY, MODIFY, SIGN Event Display: Progress Note Hospital Authored Date: Patient: MIMI WRAY Age: 78 years Sex: Female : 1945 Associated Diagnoses: None Author: Smitha Barry RN Findings Narrative/Incidental Hemodialysis Sbar/Report Unit aware patient is returning to unit : Yes Verbal necessary per protocol:Yes Nurse name:Melissa 3hours 15mins 3K bath 4.0K blood level Access AVF/AVG/ Cath/Temp-Rt Chest Permacath - site assessment-Clean - Hemostasis achieved within expected time frame-N/A 2.1liters pulled -11.9 % blood volume change If the goal is not reached why? Use drop down for yes no answers below. Treatment ran per orders _ (if no explain why) No-Antibiotics given see MAR for documentation No-blood products given see task for documentation No-Temporary access removed - (describe site assessment and dressing applied) No- meds given see MAR for documentation Patient had severe cramping after 3hrs of treatment. Patient refused to continue treatment, Dr Nava is aware Post HD Vital signs documented in flow sheet . Discharge Information Case Management Discharge Plan : Case Management Discharge Plan Data 04/12/2024 14:32 EST Discharge Level of Care at Discharge long-term facility Discharge Nursing Homes/Rehab Facilities [facility] Discharge Transportation Arranged [facility] [address] [facility] [phone] Discharge Arranged Transport Date/Time 04/13/2024 15:00 Mode of Transportation Arranged Ambulance Service Categories #1 Physical Therapy, Senior Care, Other: HD Rehabilitation Discharge : Rehab Discharge Index 04/12/2024 6:13 EST Comments on treatment indicated 78 F admitted 2' ascites. WBAT. Skilled PT for amb c RW, transfers, strength, balance, safety. Rec rehab Walker: distance 10-20 Distance pt will ambulate > 15 feet c RW Full chart review completed Yes Other findings see comment Plan of care PT Gait training, Transfer training, Therapeutic exercise, Functional Activities, Balance training, Neuromuscular education 04/09/2024 9:15 EST Comments on treatment indicated Rec: continue regular diet and thin liquids; Full chart review completed Yes Hospital course Hospital course * Adriana Paulino RN: PERFORM, SIGN, VERIFY Event Display: Progress Note Hospital Authored Date: [id number] Patient: MIMI WRAY Age: 78 years Sex: Female : 1945 Associated Diagnoses: None Author: Adriana Paulino RN Findings Narrative/Incidental Patient is AOx3. Slight confusion. VSS on RA. Denies chest pain and SOB. Reported sodium and chloride level to MD overnight. Dialysis this am. Kept patient comfortable and addressed any needs. Safety precautions maintained. Bed in low position. Call robles within reach. Nonskid socks maintained. Hourly rounding maintained. Discharge Information Case Management Discharge Plan : Case Management Discharge Plan Data 04/12/2024 14:32 EST Discharge Level of Care at Discharge long-term facility Discharge Nursing Homes/Rehab Facilities [facility] Discharge Transportation Arranged [facility] [phone] Discharge Arranged Transport Date/Time 04/13/2024 15:00 Mode of Transportation Arranged Ambulance Service Categories #1 Physical Therapy, Senior Care, Other: HD Rehabilitation Discharge : Rehab Discharge Index 04/12/2024 6:13 EST Comments on treatment indicated 78 F admitted 2' ascites. WBAT. Skilled PT for amb c RW, transfers, strength, balance, safety. Rec rehab Walker: distance 10-20 Distance pt will ambulate > 15 feet c RW Full chart review completed Yes Other findings see comment Plan of care PT Gait training, Transfer training, Therapeutic exercise, Functional Activities, Balance training, Neuromuscular education 04/09/2024 9:15 EST Comments on treatment indicated Rec: continue regular diet and thin liquids; Full chart review completed Yes Hospital course Hospital course Note * Melissa Duval RN: PERFORM Event Display: Discharge/Transfer Note Hospital Authored Date: Nursing Discharge Note Entered On: 04/13/2024 15:30 EST Performed On: 04/13/2024 15:30 EST by Melissa Duval RN Nursing Discharge Note 2 Discharge Time : 04/13/2024 15:30 EST Discharge Level of Care at Discharge : long-term facility Discharge Nursing Homes/Rehab Facilities : [facility] Patient Left Unit Via : Ambulance Patient Accompanied Off Unit with : Ambulance/Chair Van Personnel Handover Given to Transport Personnel : Yes DC Instructions Provided & Signed by Pt : Yes Patient Understands D/C Instructions : Yes Patient Instructions Discharge Signed : Yes Did Pt have Specialty Bed or Wound Vac : Yes Melissa Duval RN - 04/13/2024 15:30 EST * Eleanor Berry MD: PERFORM Event Display: Discharge/Transfer Note Hospital Authored Date: Patient: ??MIMI WRAY ? Age:??78 Years?Sex:??Female?:??1945?? Patient Information Discharge Location: S2 Primary Care Physician: Gio Junior MD Admit Date/Time: 04/08/2024 17:36 Discharge Disposition Discharge Disposition: Senior Care Facility/Rehab Discharge Diagnosis Primary diagnoses Ascites (R18.8) Hypoxia (R09.02) ESRD on dialysis (N18.6) ?? Secondary diagnoses CAD in inaja artery (I25.10) Hyperkalemia (E87.5) Nonischemic cardiomyopathy (I42.8) Multiple myeloma (C90.00) Hypertension (I10) Hyperlipidemia (E78.5) _ Discharge Medications Albuterol (albuterol CFC free 90 mcg/inh inhalation aerosol)?1?puff(s)?Inhalation?4 times a day?as needed?for 14?Days?as needed for wheezing Aspirin (aspirin 81 mg oral delayed release tablet)?81?Milligram?1?tablet?By Mouth?Daily Bortezomib?See Instructions?weekly at oncology Calcitriol (calcitriol 0.25 mcg oral capsule)?1?capsule?0.25?Microgram?By Mouth?Daily Carvedilol (carvedilol 12.5 mg oral tablet)?18.75?Milligram?1.5?tablet?By Mouth?Da basia?6.25?0.5 Clopidogrel (clopidogrel 75 mg oral tablet)?75?Milligram?1?tablet?By Mouth?Daily Famotidine (Pepcid AC Maximum Strength 20 mg oral tablet)?20?Milligram?By Mouth?Daily Losartan (losartan 25 mg oral tablet)?25?Milligram?1?tablet?By Mouth?Daily Rosuvastatin (rosuvastatin 5 mg oral capsule)?1?capsule?5?Milligram?By Mouth?Daily?Daily in AM Sevelamer (Renvela 800 mg oral tablet)?1,600?Milligram?By Mouth?3 times a day with meals torsemide (torsemide 20 mg oral tablet)?4?tab(s)?80?Milligram?By Mouth?Every Monday, Monday and Monday?TO BE GIVEN ON NON-DIALYSIS DAYS ? Medications Started torsemide (torsemide 20 mg oral tablet)?4?tab(s)?80?Milligram?By Mouth?Every Monday, Monday and Monday?TO BE GIVEN ON NON-DIALYSIS DAYS ?? Medications Discontinued None Doses Changed None PCP Follow-Up/Heads-Up ?Torsemide 80 mg??to be given on nondialysis days in order to??help control ascites ?Follow-up final cytology results from??paracentesis fluid analysis Future Appointments Monday 3:00 PM EST ?? With: Rolando Grace Where: [facility] [address] [place] [address]- Status: Pending Monday 10:20 AM EST ?? With: Paris ANTOINE, Murphy Berrios Where: [facility] [address] [place] [address]- Status: Pending Monday 1:00 PM EST ?? With: Rolando Grace Where: [facility] [place] [address] [place] [address]- Status: Pending Hospital Course 78-year-old female with a medical history significant for ESRD??on dialysis TTS,??CAD on Plavix, history of endometrial cancer s/p hysterectomy, multiple myeloma??on bortezomib, infiltrative cardiomyopathy with reduced ejection fraction,??hypertension, and hyperlipidemia, who presented??initially presented to [place] ED with complaints of abdominal distention. ??Patient was found to have ascitesand was to undergo IR guided paracentesis??but developed shortness of breath and hypoxia. ??Patientwas then transferred to??[facility]??and has been??hemodynamically stable.?? Patient was due for hemodialysis on 04/09??but her right IJ cath??was not functioning, s/p??PermCath placement??on 04/10.?? Underwent IR guided paracentesis??on 04/12.?? Patient currently hemodynamically stable to be discharged. ? Ascites (R18.8): Patient noted to have abdominal ascites on presentation to [place]. They were unable to perform paracentesis as she became hypoxic at that time. ??No history of cirrhosis. Ultrasound liver obtained showed moderate volume ascites and all quadrants. No concern for SBP at this time. Paracentesis with IR 04/12, 1250 ml fluid drained. SAAG 0.9,??likely pointing to nephrotic syndrome.??No organisms noted on Gram stain. ?? Recommendations: ?Torsemide 80 mg??on nondialysis days ?Follow-up final cytology results ? ESRD on dialysis (N18.6):?? Hyperkalemia (E87.5)-resolved Nephrology consulted, patient??on TTS dialysis. Patient endorses compliance with HD. Patient unableto receive HD because of dislodged RIJ cath. ??PermCath placed with transplant surgery on 04/10. ??Underwent bilateral??upper extremity venogram with IR 04/11, transplant surgery will schedule follow-up outpatient. ?? Recommendations: ??? Continue hemodialysis??TTS ??? Transplant surgery to schedule follow-up outpatient appointment ??? Continue calcitrol ? Chronic, stable, resolved: Hypoxia (R09.02) - resolved: Patient briefly hypoxic??with SpO2 to the 80s??at [place]. Arrived [facility]??98/100% on room air. and??patient report she does occasionally use??oxygen at home as needed. Chest x-ray??within normal??limits,??COVID/RSV/flu??negative.?Currently saturating well on room air. Dysphagia - resolved: Patient reporting??on admission that she coughs when she eats, which sometimes causes her to vomit. ST evaluated and patient cleared for regular diet with thin liquids. CAD in inaja artery (I25.10), Nonischemic cardiomyopathy (I42.8): Continue aspirin, Plavix,??beta-rita Multiple myeloma (C90.00):??Patient receives??maintenance??chemotherapy??bortezomib??weekly??with oncology Hypertension (I10):??Continue home losartan 25 mg daily, carvedilol 6.25 mg twice daily Hyperlipidemia (E78.5):??Continue home rosuvastatin 5 mg daily ? Objective Vital Signs?? Temperature: 97.8 DegF (04/13/24 10:20:00) Temperature Route: Oral (04/13/24 10:20:00) Pulse Rate: 75 bpm (04/13/24 11:23:00) Respiratory Rate: 18 br/min (04/13/24 10:20:00) Systolic Blood Pressure: 134 mm Hg (04/13/24 11:23:00) Diastolic Blood Pressure: 68 mm Hg (04/13/24 11:23:00) Blood pressure sites: Arm, left (04/13/24 10:20:00) Mean Arterial Pressure: 90 mm Hg (04/13/24 10:20:00) Pulse Pressure: 66 mm Hg (04/13/24 10:20:00) Oxygen Saturation: 100 % (04/13/24 10:20:00) Mode of Delivery (Oxygen): Room air (04/13/24 10:20:00) Early Warning Score: 3 (04/13/24 11:30:22) ? . Physical Exam General: NAD Head/Neck/Throat: Normocephalic, atraumatic, moist mucous membranes Eyes: Sclera anicteric, EOMI Thorax: Clear to auscultation bilaterally, no respiratory distress Cardiovascular: Regular rate and rhythm, no murmurs rubs or gallops, trace bilateral nonpitting LE edema, no JVD Abdomen: Soft, nontender, distended, normoactive bowel sounds Musculoskeletal: No gross bony deformities Skin:Dry skin on lower extremities bilaterally Neurologic: Alert and oriented x3, no focal neurological deficits, no facial droop Surgical Procedures Insertion Hemodialysis Catheter 04/10/2024 11:20 Consultants Renal - Brandy ANTOINE, Agustin Solorzano?? Transplant surgery - Kadeem Davis DO Pending Results Add On Lab Order ordered on 04/12/2024 Body Fluid Cult Aer/Anaer w/Gram ordered on 04/11/2024 Body Fluid Smear Review ordered on 04/11/2024 CT/ US Image Guide Drain ordered on 04/08/2024 Urinalysis w/hold for Urine Culture ordered on 04/08/2024 Patient Education Titles WebMD Ignite Patient Education - Discharge Instructions for Chronic Kidney Disease (CKD)?? Web[employer]ite Patient Education - Ascites?? Follow-Up Appointments Added Follow Up ?Time Frame ?Comments Please follow up with your dialysis regularly Gio Junior?1 to 2 weeks?also for anemia Patient Instructions You were seen at [facility] for swelling of your abdomen.?? You were to undergo drainage butdeveloped some shortness of breath, for which she was transferred to [facility].?? Youunderwent replacement of your permacath for dialysis.?? You had drainage of your abdominal fluid and your vitals have been stable. ?? At this time, you are safe to be discharged.?? Please follow-up with your primary care provider within 1 to 2 weeks.?? You will be discharged on a medication called torsemide 80 mg to be taken on nondialysis days to help control the fluid accumulation in your abdomen.?? Please take this medication as prescribed. Continue dialysis on your regular schedule Monday, , Monday.?? Transplant surgery will also contact you for an outpatient follow-up appointment. ?? If you experience worsening/significant abdominal swelling/distention, shortness of breath, chest pain, or any other concerns you may have, please reach out to your medical provider immediately or return to the emergency department at once. ?? Post Discharge Care Activity: ??Ambulate with assistance 3 times a day unless otherwise specified ?? Discharge ?04/13/24 14:30:00 EST ?Order Comment:?? Discharge Prescriptions ?ePrescribed, 04/13/24 14:30:00 EST ?Order Comment:?? Results Discharge Labs BACTERIOLOGY Gram Stain Isolate 1 Comment ()?? 04/11/2024 14:40 Gram Stain Isolate 2 No organisms seen ()?? 04/11/2024 14:40 Gram Stain Result Final report ()?? 04/11/2024 14:40 Body Fluid Culture Results Preliminary report ()?? 04/11/2024 14:40 Body Fluid Specimen Source ASCITIC FLUID ()?? 04/11/2024 14:40 Body Fluid Culture Isolate 1 Comment ()?? 04/11/2024 14:40 ?? BLOOD COUNT & DIFF WBC 5.8 k/mm3 ()?? 04/13/2024 05:12 RBC 3.31 m/mm3 (Low)?? 04/13/2024 05:12 Hgb 10.4 Gm/dL (Low)?? 04/13/2024 05:12 Hct 32.2 % (Low)?? 04/13/2024 05:12 MCV 97.3 femtoliters ()?? 04/13/2024 05:12 MCH 31.4 pg ()?? 04/13/2024 05:12 MCHC 32.3 Gm/dL (Low)?? 04/13/2024 05:12 Platelet Count 240 k/mm3 ()?? 04/13/2024 05:12 RDW-SD 65.3 femtoliters (High)?? 04/13/2024 05:12 MPV 10.8 femtoliters ()?? 04/13/2024 05:12 Nucleated RBC (Automated) 0.0 #/100 WBC'S ()?? 04/13/2024 05:12 Abs. NRBC 0.0 k/mm3 ()?? 04/13/2024 05:12 ?? CHEM GENERAL Sodium 132 mmol/L (Low)?? 04/13/2024 05:12 Potassium 4.0 mmol/L ()?? 04/13/2024 05:12 Chloride 92 mmol/L (Low)?? 04/13/2024 05:12 Bicarbonate Level 23 mmol/L ()?? 04/13/2024 05:12 Anion Gap 17 ()?? 04/13/2024 05:12 Glucose Level 105 mg/dL (High)?? 04/11/2024 02:01 Hemoglobin A1C (Monitoring) 6.2 % (High)?? 04/09/2024 01:52 BUN 24 mg/dL (High)?? 04/11/2024 02:01 Creatinine-Blood 4.32 mg/dL (High)?? 04/11/2024 02:01 Estimated GFR Creatinine 10 ML/MIN/1.73 M2 ()?? 04/11/2024 02:01 Calcium 8.6 mg/dL ()?? 04/11/2024 02:01 Phosphorus 3.7 mg/dL ()?? 04/11/2024 02:01 Magnesium 2.1 mg/dL ()?? 04/11/2024 02:01 Protein, Total 5.5 Gm/dL (Low)?? 04/11/2024 02:01 Albumin 3.5 Gm/dL ()?? 04/11/2024 02:01 Alkaline Phosphatase 77 units/L ()?? 04/11/2024 02:01 AST (SGOT) 18 units/L ()?? 04/11/2024 02:01 ALT (SGPT) 9 units/L ()?? 04/11/2024 02:01 Bilirubin, Total 0.5 mg/dL ()?? 04/11/2024 02:01 Bilirubin, Direct 0.2 mg/dL ()?? 04/11/2024 02:01 Bilirubin, Indirect 0.3 mg/dL ()?? 04/11/2024 02:01 Estimated Average Glucose 131 mg/dL ()?? 04/09/2024 01:52 ?? FLUID STUDIES Color, Fluid YELLOW ()?? 04/11/2024 14:40 Appearance, Fluid SLT HAZY ()?? 04/11/2024 14:40 WBC, Fluid 267 per Cubic Millimeter ()?? 04/11/2024 14:40 RBC, Fluid <3000 per Cubic Millimeter ()?? 04/11/2024 14:40 Seg, Fluid 2 % ()?? 04/11/2024 14:40 Lymph, Fluid 45 % ()?? 04/11/2024 14:40 Collier, Fluid 5 % ()?? 04/11/2024 14:40 Baso, Fluid 1 % ()?? 04/11/2024 14:40 Other, Fluid 47 % ()?? 04/11/2024 14:40 T. Protein, Fluid 3.6 Gm/dL ()?? 04/11/2024 14:40 Glucose, Fluid 98 mg/dL ()?? 04/11/2024 14:40 LDH, Fluid 130 units/L ()?? 04/11/2024 14:40 Albumin, Fluid 2.6 Gm/dL ()?? 04/11/2024 14:40 Amylase, Fluid 33 units/L ()?? 04/11/2024 14:40 ?? HEME OTHER Hold Lavender Top SPECIMEN DISCARDED AFTER 24 HOURS. ()?? 04/12/2024 14:19 ? SEROLOGY INF DISEASE Hepatitis B Surface Antigen NON REACTIVE ()?? 04/12/2024 14:19 Hepatitis B Core Ab, Total NON REACTIVE ()?? 04/12/2024 14:19 Anti-HBS Quant 19.60 mIU/mL ()?? 04/12/2024 14:19 ? URINE OTHER Est Creatinine Clearance 9.16 mL/min ()?? 04/11/2024 03:36 ? Microbiology ?? Gram Smear Result?? Completed?? Source: ASCT Body Site: ?? Collected Dt/Tm: 04/11/2024 14:40 Last Updated Dt/Tm: 04/12/2024 01:05 ?? Gram Stain/Body Fluid Culture Reflex?? Completed?? Source: ASCT Body Site: ?? Collected Dt/Tm: 04/11/2024 14:40 Last Updated Dt/Tm: 04/13/2024 11:06 ? Image ?US Ascites??04/09/2024 16:40 by Dayana Bunch ?IMPRESSION: Moderate volume ascites. ?? 35??minutes spent on discharge ? Eleanor Berry MD Internal Medicine PGY3 Pager: [phone] ?? Patient seen and management discussed with attending physician,??Dr. Jonatan Duval RN, Melissa: PERFORM Event Display: Patient Education/Instruction Authored Date: [id number] Inpatient Adult Discharge Instructions. [address] [address] Name: MIMI WRAY : 1945?? Visit: 04/08/2024 17:36?? Current Date: 04/13/2024 14:32 ?? Account: [id number]?? Inpatient Adult Discharge Instructions We would like to thank you for allowing us to assist you with your healthcare needs. The following includes patient education materials and information regarding your injury/illness. Our entire staffstrives to provide an excellent experience for our patients and their families. PLEASE ENSURE YOU FOLLOW-UP PER THE INSTRUCTIONS BELOW! ?? YOUR OPINION IS IMPORTANT TO US! Please complete the survey you may receive by mail or email. Your feedback will be used to make improvements to the healthcare experiences of our patients and their families. Surveys are administered by [employer] ?? If further treatment with your primary care physician or another doctor is recommended, it is important for you to keep the appointment. Call your primary care physician or return to the Emergency Department immediately if your condition worsens, fails to improve, or new symptoms develop. If you need to find a doctor, you can call [facility] [email or web address] Link for a referral at [phone] or toll free at [phone]) or log in to [email or web address].. ?? [facility], in keeping with [facility] guidance, no longer requires face masks for staff, patientsor visitors in most situations. Similiar to time spent indoors at other locations, there is the chance that you were exposed to repiratory viruses during your time with us (such as flu or COVID-19). If you develop symptoms concerning for a viral respiratory infection, please seek testing (and treatment if indicated) from your medical provider or home test kit. ?? You can view and manage your care through the patient portal or by using a health care chevy of your choosing. [employer] is a website that allows you to securely view your medical information including your hospital discharge summary, office visit summaries, medications and follow-up visits. You can also request appointments, renew medications, and request access to your medical information using a health care chevy of your choosing, or just ask a question. You can enroll at [email or web address] or register during your next office visit. You have been discharged from [facility], Patient Care Unit: S2??. If you have any questions regarding these instructions, including results of studies pending, afteryou leave, please call us and we will be happy to assist you 28/11. [facility] Your Care Team Attending Physician Maci Cheung MD?? Consulting Providers Maci Cheung MD?? Discharging Providers Eleanor Berry MD Reason for Your Visit Abdominal distention/ascites?? Your Diagnosis Ascites Hypoxia Hyperkalemia ESRD on dialysis CAD in inaja artery Nonischemic cardiomyopathy Multiple myeloma Hypertension Hyperlipidemia Tests Performed Below is a partial list of the tests performed during your hospitalization. You may have had other tests and procedures not included in this list. Please discuss all test results with your provider. Albumin Fluid AMYLASE FLUID Basic Metabolic Panel Body Fluid Cult Aer/Anaer w/Gram?-- Results Pending -- Body Fluid Culture Reflex BODY FLUID SMEAR REVIEW?-- Results Pending -- CBC Cell Count and Differential Fluid GLUCOSE FLUID Gram Stain Result Hemoglobin A1C w/ Estimated Glucose HEPATIC FUNCTION PANEL Hepatitis B Core Ab Hepatitis B Surface Antibody, Quant Hepatitis B Surface Antigen HOLD LAVENDER TUBE K Level LDH Fluid LFT's Lytes Magnesium Level Phosphorus Level Potassium Level Protein Fluid IR Generic Order US Ascites XR C-Arm < 1 Hour Add On Lab Order?? Albumin Fluid?? Amylase Fluid?? Anti-HBS Quant (Hepatitis B Surface Antibody, Quant)?? Basic Metabolic Panel?? Body Fluid Cult Aer/Anaer w/Gram?? Body Fluid Smear Review?? CBC?? CT/ US Image Guide Drain?? Cell Count and Differential Fluid?? Electrolytes (Lytes)?? Glucose Fluid?? Gram Smear Result (Gram Stain Result)?? Gram Stain/Body Fluid Culture Reflex (Body Fluid Culture Reflex)?? Hemoglobin A1C w/ Estimated Glucose?? Hepatic Function Panel?? Hepatitis B Core Ab?? Hepatitis B Surface Antigen?? Hold Lavender Top Tube (HOLD LAVENDER TUBE)?? IR Generic Order?? IR US Images?? LDH Fluid?? Magnesium Level?? Phosphorus Level?? Potassium Level (K Level)?? Protein Fluid?? US Ascites?? Urinalysis w/hold for Urine Culture?? C-Arm < 1 Hour?? Primary Care Provider Vernon ANTOINE, Gio Rosales? Advance Directive Health Care Proxy on File Yes - Health Care Proxy Discharge Vitals Temperature: 97.8 DegF Height: 160 cm Pulse Rate: 75 bpm Weight: 60.4 kg Respiratory Rate: 18 br/min Body Mass Index: 23.83 kg/m2 Systolic Blood Pressure: 134 mm Hg Body surface area: 1.65 Diastolic Blood Pressure: 68 mm Hg ?? Oxygen Saturation: 100 % ?? Studies Pending All studies ordered during this hospital stay have been completed unless listed below. Please discuss all pending results with your provider listed above in these instructions. ?? Add On Lab Order?? Body Fluid Cult Aer/Anaer w/Gram?? Body Fluid Smear Review?? CT/ US Image Guide Drain?? Urinalysis w/hold for Urine Culture?? What to do next Instructions From Your Doctor ?? Orders??:Ambulate with assistance ??3 times a day ??unless otherwise specified? 04/13/24 14:30:00 EST?? Prescriptions??, ??04/13/24 14:30:00 EST?? Scheduled Follow-Up Appointments Monday 3:00 PM EST ?? With: Rolando Grace Where: [facility] [place] [address] [place] [address]- Status: Pending Monday 10:20 AM EST ?? With: [place] ANTOINE, Murphy Berrios Where: [facility] [address] [place] [address]- Status: Pending Monday 1:00 PM EST ?? With: Rolando Grace Where: [facility] [place] [address] [place] [address]- Status: Pending You Need to Schedule the Following Appointments Follow Up with??Please follow up with your dialysis regularly Follow Up with??Gio Junior When:??Within 1 to 2 weeks Why: also for anemia Where: [address] [facility] [place] [place] [address]- Business (1) Discharge Medications MIMI WRAY :1945 Visit Date:04/08/2024 Medications: Please continue your medications until treatment is completed or stopped by your provider. Medications not listed below should be discontinued. Discuss any questions related to medications with your provider. What How Much When Instructions Next Dose New torsemide (torsemide 20 mg oral tablet) 4 tab(s) Oral Monday, Monday and Monday TO BE GIVEN ON NON-DIALYSIS DAYS ?? Unchanged Albuterol (albuterol CFC free 90 mcg/ inh inhalation aerosol) 1 puff(s) Inhalation 4 times a day as needed for as needed for wheezing Duration: 14 Days 04/13 PRN Unchanged Aspirin (aspirin 81 mg oral delayed release tablet) 1 tab(s) Oral Daily 04/14 Unchanged Bortezomib See instructions weekly at oncology ?? Unchanged Calcitriol (calcitriol 0.25 mcg oral capsule) 1 capsule Oral Daily 04/14 Unchanged Carvedilol (carvedilol 12.5 mg oral tablet) 0.5 tab(s) Oral Daily 04/14 Unchanged Clopidogrel (clopidogrel 75 mg oral tablet) 1 tab(s) Oral Daily 04/14 Unchanged Famotidine (Pepcid AC Maximum Strength 20 mg oral tablet) 20 Milligram Oral Daily 04/14 Unchanged Losartan (losartan 25 mg oral tablet) 1 tab(s) Oral Daily 04/14 Unchanged Rosuvastatin (rosuvastatin 5 mg oral capsule) 1 capsule Oral Daily in the morning 04/14 Unchanged Sevelamer (Renvela 800 mg oral tablet) 1,600 Milligram Oral 3 times a day with meals 04/13 with dinner Prescription Given During Visit No new medications prescribed at time of discharge.?? Laboratory Results Below is a partial list of the most recent Laboratory test results done prior to this discharge. You may have had other tests and procedures not included in this list. Please discuss all test resultswith your provider. Est Creatinine Clearance - 9.16 mL/min (04/11/2024) Albumin Fluid (04/11/2024) ???Albumin, Fluid - 2.6 Gm/dL AMYLASE FLUID (04/11/2024) ???Amylase, Fluid - 33 units/L Basic Metabolic Panel (04/11/2024) ???Sodium - 137 mmol/L???Potassium - 3.8 mmol/L???Chloride - 96 mmol/L???Bicarbonate Level - 25 mmol/L???Anion Gap - 16???Glucose Level - 105 mg/dL???BUN - 24 mg/dL???Creatinine-Blood - 4.32 mg/dL???Estimated GFR Creatinine - 10 ML/MIN/1.73 M2???Calcium - 8.6 mg/dL Body Fluid Culture Reflex (04/11/2024) ???Body Fluid Culture Isolate 1 - Comment CBC (04/13/2024) ???WBC - 5.8 k/mm3???RBC - 3.31 m/mm3???Hgb - 10.4 Gm/dL???Hct - 32.2 %???MCV - 97.3 femtoliters???MCH - 31.4 pg???MCHC - 32.3 Gm/dL???Platelet Count - 240 k/mm3???RDW-SD - 65.3 femtoliters???MPV - 10.8 femtoliters???Nucleated RBC (Automated) - 0.0 #/100 WBC'S???Abs. NRBC - 0.0 k/mm3 Cell Count and Differential Fluid (04/11/2024) ???Color, Fluid - YELLOW???Appearance, Fluid - SLT HAZY???WBC, Fluid - 267 per Cubic Millimeter???RBC, Fluid - <3000 per Cubic Millimeter? ?Seg, Fluid - 2 %? ?Lymph, Fluid - 45 %? ?Collier, Fluid - 5%???Baso, Fluid - 1 %???Other, Fluid - 47 % GLUCOSE FLUID (04/11/2024) ???Glucose, Fluid - 98 mg/dL Gram Stain Result (04/11/2024) ???Gram Stain Isolate 1 - Comment???Gram Stain Isolate 2 - No organisms seen Hemoglobin A1C w/ Estimated Glucose (04/09/2024) ???Hemoglobin A1C (Monitoring) - 6.2 %???Estimated Average Glucose - 131 mg/dL HEPATIC FUNCTION PANEL (04/11/2024) ???Protein, Total - 5.5 Gm/dL???Albumin - 3.5 Gm/dL???Alkaline Phosphatase - 77 units/L???AST (SGOT) - 18 units/L???ALT (SGPT) - 9 units/L???Bilirubin, Total - 0.5 mg/dL???Bilirubin, Direct - 0.2 mg/dL???Bilirubin, Indirect - 0.3 mg/dL Hepatitis B Core Ab (04/12/2024) ???Hepatitis B Core Ab, Total - NON REACTIVE Hepatitis B Surface Antibody, Quant (04/12/2024) ???Anti-HBS Quant - 19.60 mIU/mL Hepatitis B Surface Antigen (04/12/2024) ???Hepatitis B Surface Antigen - NON REACTIVE HOLD LAVENDER TUBE (04/12/2024) ???Hold Lavender Top - SPECIMEN DISCARDED AFTER 24 HOURS. K Level (04/10/2024) ???Potassium - 4.9 mmol/L LDH Fluid (04/11/2024) ???LDH, Fluid - 130 units/L LFT's (04/09/2024) ???Protein, Total - 5.9 Gm/dL???Albumin - 3.7 Gm/dL???Alkaline Phosphatase - 82 units/L???AST (SGOT) - 18 units/L???ALT (SGPT) - 15 units/L???Bilirubin, Total - 0.6 mg/dL???Bilirubin, Direct - 0.3 mg/dL???Bilirubin, Indirect - 0.3 mg/dL Lytes (04/13/2024) ???Sodium - 132 mmol/L???Potassium - 4.0 mmol/L???Chloride - 92 mmol/L???Bicarbonate Level - 23 mmol/L???Anion Gap - 17 Magnesium Level (04/11/2024) ???Magnesium - 2.1 mg/dL Phosphorus Level (04/11/2024) ???Phosphorus - 3.7 mg/dL Potassium Level (04/09/2024) ???Potassium - 5.2 mmol/L Protein Fluid (04/11/2024) ???T. Protein, Fluid - 3.6 Gm/dL You will be contacted within 72 hours with your results. Allergies (NKA means No Known Allergies) NKA Problems Active Problems??(10) CAD in inaja artery?? ESRD on dialysis?? x 4?? History of endometrial cancer?? Hyperlipidemia?? Hypertension?? Multiple myeloma?? Nonischemic cardiomyopathy?? Social history?? Troponin level elevated?? Education Materials Below is the list of Educational Leaflet Providered with your Discharge Instructions. [employer] Patient Education - Discharge Instructions for Chronic Kidney Disease (CKD)?? [employer] Patient Education - Ascites?? Valuables and Belongings I fully understand and agree that [facility] accepts no responsibility for all my personal property including clothing, toilet articles, radios, jewelry, dentures, hearing aids, rings, money, or any other property that is in my possession or is brought to me after admission. I understand certain valuables may be placed in a hospital safe for a short period of time. I understand that the hospital is not liable for loss or damage due to accident, fire, or other natural occurrence while said property is in the safe. I accept full responsibility for any personal property that I keep with me, and will not hold the hospital responsible in case of loss or disappearance. I acknowledge that i have been encouraged to send valuables and belongings home. ?? Review of Valuable and Belonging List: With patient Date for Pt to Sign Valuables/Belongings: 04/10/24 09:20:00 ?? Valuables & Belongings ?? Clothes Electronic devices Jewelry Monetary Items Personal devices Miscellaneous Medications (Valuables) Valuables at Bedside ?? Cell phone, Other: cellphone administrative office assistant. Rings ?? Dentures, full ? Valuables Sent Home ? Valuables Sent to Security ? Valuables Sent to Locker ? Other Discharge Information ? Case Management Discharge Plan?? Discharge Plan?? Discharge Agency Information?? Discharge Level of Care at Discharge: long-term facility Service Categories #1: Physical Therapy, Senior Care, Other: HD Discharge Transportation Arranged: [facility] [address] [facility] [phone] ?? Mode of Transportation Arranged: Ambulance ?? Discharge Arranged Transport Date/Time: 04/13/24 15:00:00 ?? Discharge Nursing Homes/Rehab Facilities: [facility] ? Pulmonary Rehab Status?? Pulmonary Rehab Discharge Status?? Respiratory Rate: 18 br/min ? Common Emergency Awareness Tips IS IT A STROKE? Act FAST and Check for these signs: FACE Does the face look uneven? ARM Does one arm drift down? SPEECH Does their speech sound strange? TIME Call at any sign of stroke ?? Heart Attack Signs Chest discomfort: Most heart attacks involve discomfort in the center of the chest and lasts more than a few minutes, or goes away and comes back. It can feel like uncomfortable pressure, squeezing, fullness or pain. Discomfort in upper body: Symptoms can include pain or discomfort in one or both arms, back, neck, jaw or stomach. Shortness of breath: With or without discomfort. Other signs: Breaking out in a cold sweat, nausea, or lightheaded. Remember, MINUTES DO MATTER. If you experience any of these heart attack warning signs, call to get immediate medical attention! ?? Smoking can increase your chances of developing chronic health problems and can cause harmful effects to other family members in your house. If you smoke, you are strongly encouraged to quit. Please call [facility] [email or web address] Link at [phone] or [phone] or log in to [email or web address] for referrals to smoking cessation programs. ?? 654 Suicide & Crisis Lifeline is available 28/11 if you or someone you know needs to find a reason to keep living. By calling 289 you'll be connected to a skilled, trained counselor at a crisis center in your area. INPATIENT DISCHARGE INSTRUCTIONS SIGNATURE MIMI MCGOVERN Location:[facility] Registration Date and Time:04/08/2024 17:36 EST Primary Care Physician: Gio Junior MD, Attending Physician: Maci Cheung MD, MIMI HOLGUIN, have received the above patient education materials/instructions and have verbalized understanding. If ambulance or transport services are being used I further acknowledge being given a choice of service. ?? If you need to contact me, please call me at this number: . Patient/Adjudication Specialist Name: Patient/Adjudication Specialist Signature: Relationship to Patient: Witness Name/Signature: Date: * Maci Cheung MD: PERFORM, SIGN, VERIFY Event Display: Patient Education Handout Authored Date: * Eleanor Berry MD: PERFORM Event Display: Patient Education Leaflets Authored Date: Discharge Instructions for Chronic Kidney Disease (CKD) ?? [address] Discharge Instructions for Chronic Kidney Disease (CKD) The job of the kidneys is to remove waste products and extra water from the blood. When the kidneysdon't work as they should, waste products start to build up in the blood. This is called chronic kidney disease (CKD).?? CKD means that you have kidney damage or a decrease in kidney function lasting at least 3 months. CKD allows extra water, waste, and toxins to build up in the body. This can become life-threatening over time. You might need dialysis or a kidney transplant to stay alive. This most severe form is called end-stage renal disease. Chronic kidney disease can happen because of many things. These include: ??? Infections ??? Diabetes ??? High blood pressure ??? Kidney stones ??? Circulation problems ??? Reactions to medicine Having kidney??disease means making many changes in your life. Learn as much as you can about??it so that you can better adjust to these changes. It's important to remember that the main goal of treatment is to stop CKD from progressing to kidney failure. Treatments may vary based on the progression of CKD. Always follow your healthcare provider's directions on how to manage your??condition. Below are some things you can do to help you manage CKD. Changes to what you eat and drink When you have CKD, your body can???t process certain things as well. You need to make changes to what you eat and drink. Eat small meals often that are high in fiber and calories. You may be told to limit how much fluid you drink. Talk with your healthcare provider before making any changes to what you eat and drink. Any kind ofdietary change can feel overwhelming and confusing. You can ask your provider to refer you to a registered dietitian. This person can help you plan and manage the changes to your diet. Reduce your salt (sodium) You may be told to have 1,500 mg or less of sodium daily. This section will help you make that happen. When shopping for foods: ??? Buy fresh meats and fish, and fresh vegetables and fruits. These don???t have added sodium. ???Don???t buy processed foods. These include frozen and pre- made meals, canned meat and fish, and lunch meats. ??? Don???t buy salty foods such as cheese, pickled foods, or salty snacks. ??? Read all food labels to check sodium levels. ??? Don???t eat fast food. It's often high in sodium. When cooking at home: ??? Don't add salt to your food while cooking or before eating at the table. ??? Season foods with fresh herbs, garlic, onions, citrus, and flavored vinegar. Use salt-free spice blends. ??? Don't usesalt substitutes that are high in potassium. Ask your healthcare provider or a dietitian which saltsubstitutes to use. Other sources of hidden sodium include: ??? Softened water. Don???t drink water that has been through a water softener. It has sodium in it. ??? Bottled water. Some types of mineral water have sodium. Make sure to read labels. ??? Some medicines. Some ecbj-zsm-bjbmdwc (OTC) medicines that have sodium bicarbonate or sodium carbonate. Readlabels carefully. If you aren't certain about a medicine, talk with the pharmacist before using it. Watch your potassium ?? You may be told to eat less than 1,500 mg to 2,700 mg of potassium daily. To stay on target: ??? Check all food labels to see how much potassium is in the product. ??? Always drain canned foods before serving. This includes canned vegetables, fruits, and meats. ??? Don't eat whole-grain bread, wheat bran, or granola. ??? Don't eat??milk, buttermilk, or yogurt. ??? Don't eat nuts, seeds, peanut butter, dried beans, or peas. ??? Don't eat fig cookies, chocolate, or molasses. ??? Don't use??salt substitutes that are high in potassium. Ask your healthcare provider or a dietitian which??salt substitutes to use. Limit your protein Based on your condition, your healthcare provider will talk with you about why you should limit??protein in your diet. To do this: ??? Eat less meat, milk products, yogurt, eggs, and cheese. ??? Check all food labels to see how much protein is in the product. Avoid phosphorus When you have CKD, your kidneys can???t remove phosphorus from your blood very well. High phosphorus levels can cause damage to your body and make your bones weak. To avoid phosphorus in your diet: ??? Don't??drink beer, cocoa, dark foreign, leta, chocolate drinks, or??canned ice teas. ??? Don't eat cheese, milk, ice cream, pudding, yogurt, or caramel. ??? Don't eat liver (beef, chicken), organ meats, oysters, crayfish, or??sardines. ??? Don't eat beans (soy, kidney, black, garbanzo, and northern), peas (chick and split), bran cereals, or??nuts. ?? General home care ??? Try not to wear yourself out or get too tired. ??? Get plenty of rest and getmore??sleep at night. ??? Bend and move your legs often. This helps to prevent blood clots when yourest for a long time. ??? Weigh yourself every day. Do this??at the same time of day and in the same kind of clothes. Keep a record of your daily weights. ??? Take your medicines exactly as directed.??? Keep all medical appointments. ??? Take steps to control high blood pressure or diabetes. Talk with your healthcare provider for advice. ??? Talk with your provider about dialysis. This proceduremay help??if your chronic kidney disease is progressing to end stage renal disease. ?? Follow-up care Follow up with your healthcare provider, or as advised. ?? When to call your healthcare provider Call your provider right away if you have any of these: ??? Trouble eating or drinking ??? Weight loss of more than?? 2??pounds in?? 24??hours or more than?? 5??pounds in?? 7 days ??? Weight gain of more than 3 pounds in 2 days or 5 pounds in 3 days ??? Little or no urine output ??? Trouble breathing ??? Muscle aches ??? Fever??of?? 100.4??F ( 38??C) or higher, or as advised by your provider ??? Blood in your urine or stool ??? Bloody fluid leaking from your nose, mouth, or ears ??? Severe headache or a seizure ??? Vomiting ??? Swollen legs or ankles ??? Feeling depressed or anxious ?? Call 911 Call 911 right away if you have: ??? Chest pain ?? Last Reviewed Date: 2021 ?? 2914-1637 [employer]. All rights reserved. This information is not intended as a substitute for professional medical care. Always follow your healthcare professional's instructions. ?? * Eleanor Berry MD: PERFORM Event Display: Patient Education Leaflets Authored Date: [id number] Ascites ?? [id number] Ascites Ascites is when fluid collects in the belly area (abdomen).??Symptoms include swelling of the abdomen and a feeling of pressure. You may also have shortness of breath. In severe cases, your feet, ankles, and legs may also swell.?? There are many causes of ascites. They include: ??? Cirrhosis of the liver. This is a type of damage to the liver. It is the most common cause of ascites.??It may be from the hepatitis B or hepatitis C virus. It may also be from long-term alcohol abuse or from nonalcoholic steatohepatitis. ??? Other diseases. These include heart failure, kidney f ailure, pancreatitis, or cancer. To treat the condition, you may need to be on a low-salt diet. Your healthcare provider may prescribe medicines that help fluid leave your body. These medicines are called diuretics. In some cases, you may need a procedure to drain fluid from your abdomen. This is called paracentesis. If the cause of your ascites is not treated, the fluid is likely to return. If the fluid becomes infected, you will need to take antibiotics. If you have liver damage due to alcohol, stopping all alcohol will help slow the progress of the disease. If you have liver damage from hepatitis B or C, you may have treatments to fight the virus. If you have liver damage that is life- threatening, you may need a liver transplant. How to say it uh-SI-teez ?? Home care ??? Some medicines can make liver damage worse. Talk to your healthcare provider or pharmacist about all medicines you take. Ask them before taking any new medicines. Ask them before you take any herbs, vitamins, or minerals. Some of these may affect the liver. ??? Talk with your healthcare provider before you take acetaminophen or ibuprofen.??Both of these medicines can affect your liver.? Stop all alcohol use. If you have a problem with alcohol, talk with your healthcare provider about getting help and support to stop.? If you use IV (intravenous) drugs, get help to stop. Never share needles or other drug items.? If you have cirrhosis from diabetes, obesity, or metabolic syndrome linked to DAVIS, you need to get treatment for these. You will also need to exercise and lose weight. ??? Follow a low-sodium diet. ??? Take medicines as directed. ?? Follow-up care Follow up with your healthcare provider as advised.??Call as directed for results if a culture was done on the fluid, or if you had imaging tests or other tests. Your treatment may change based on the results of these tests. These resources can tell you more and help you find support: ??? [place] [employer] at www.liverfoundation.org or 337-918-2779 ? Alcoholics Anonymous at www.aa.org to find an A.A. group near you ?? When to get medical care Call your healthcare provider right away if any of these occur: ??? Sudden weight gain with increased size of your belly or leg swelling ??? Increasing jaundice (yellowing of skin or eyes) ??? Excessbleeding from cuts or injuries ??? Blood in vomit or stool (black or red color) ??? Trouble breathing ??? Increasing belly pain ??? Confusion ??? Fever of 100.4??F (38??C) or higher, or as advised byyour provider ??? Chills ?? Last Reviewed Date: 2022 ?? [id number] [employer]. All rights reserved. This information is not intended as a substitute for professional medical care. Always follow your healthcare professional's instructions. ?? Patient Care team information Care Team Personnel Name: Jennifer Otoole Position: [facility] Onco RN Member Role: Primary Care Nurse Name: Silvia Newberry RN Position: S RN Member Role: Primary Care Nurse Name: Naveen Mcgrath RN Position: [facility] RN Member Role: Primary Care Nurse Name: Juani Celestin MA Position: [facility] Onco RN Member Role: Primary Care Nurse Name: Vanessa Arana RN Position: [facility] RN Member Role: Primary Care Nurse Name: Orquidea Mtz RN Position: [facility] RN Member Role: Primary Care Nurse Name: Vick Martino RN Position: [facility] RN Member Role: Primary Care Nurse Name: Slick Garcia RN Position: [facility] RN Member Role: Primary Care Nurse Name: Maryam Mejía RN Position: [facility] Onco RN Member Role: Primary Care Nurse Name: Smitha Godinez RN Position: [facility] Hospital Cushion Assembler Member Role: Primary Care Nurse Name: Brandi Frausto RN Position: [facility] SN RN Member Role: Primary Care Nurse Name: Fadia Alexandre RN Position: [facility] Onco RN Member Role: Primary Care Nurse Name: Breana White Position: [facility] Outreach Member Role: Lifetime Consulting Physician Name: Carolyn Parrish NP Position: [facility] Associate Professional Member Role: Lifetime Consulting Provider Address: [address] [facility] [place] [address]- [place] Tele[employer]: Name: Ron Lazcano MD Position: [facility] Renal MD Member Role: Lifetime Consulting Physician Address: [address] [facility] [place] [address]- [place] [employer]: Name: Suni Peters DO Position: [facility] Renal MD Member Role: Lifetime Consulting Physician Address: [address] [facility] [place] [address]- [place] Tele[employer]: Name: Nasra Jalloh RN Position: [facility] RN Member Role: Primary Care Nurse Name: Leslie Flores RN Position: [facility] SN RN Member Role: Primary Care Nurse Name: Kadeem Borrego DO Position: [facility] Renal MD Member Role: Lifetime Consulting Physician Address: [address] [facility] [place] [address]- [place] Tele[employer]: Name: Patricia Faustin RN Position: [facility] RN Member Role: Primary Care Nurse Name: Delmer Gardner RN Position: [facility] RN Member Role: Primary Care Nurse Name: Fidencio Meyers RN Position: [facility] RN Member Role: Primary Care Nurse Name: Mustapha Gao MD Position: [facility] Renal MD Member Role: Lifetime Consulting Physician Address: [address] [place] [address] [facility] [place] [address]- Telecom: Name: Hafsa Cervantes RN Position: [facility] Onco RN Member Role: Primary Care Nurse Name: Puneet Garibay RN Position: [facility] RN Member Role: Primary Care Nurse Name: Angelina Quintana LPN Position: [facility] RN Member Role: Primary Care Nurse Name: Ratna Flores RN Position: [facility] Onco RN Member Role: Primary Care Nurse Name: Wendi Naidu RN Position: [facility] RN Member Role: Primary Care Nurse Name: Kathy Suarez RN Position: [facility] RN Member Role: Primary Care Nurse Name: Dana Messina RN Position: [facility] SN RN Member Role: Primary Care Nurse Name: Yany Foote RN Position: [facility] RN Member Role: Primary Care Nurse Name: Gio Junior MD Position: [facility] Physician - Primary Care Member Role: PCP Address: [address] [place] [address] [place] [address]- Telecom: Name: Tiffani Pozo RN Position: [facility] Hospital Cushion Assembler Member Role: Primary Care Nurse Name: Uday Foreman RN Position: [facility] RN Member Role: Primary Care Nurse Name: Juani Simpson RN, I Position: [facility] RN Member Role: Primary Care Nurse Care Team Related Persons Name: NEPTALI BROWNLEE Name: LOW WRAY Insurance Providers Guarantor name: MIMI WRAY Health Plan Information #: 1 Payer: MEDICARE A INPT 25 Member Number: [id number] Policy Number: NA Group Number: NA Health Plan Information #: 2 Payer: MEDEX Member Number: [id number] Policy Number: NA Group Number: [id number] Health Plan Information #: 3 Payer: MEDEX Member Number: [id number] Policy Number: NA Group Number: [id number]
--- OUTSIDE RECORDS SUMMARY | 2024-04-17 12:16 | XMS_ITS | Continuity of Care Document ---
Author Organization [facility] Address [address] [place] [address]- Care Team Providers Care Museum Registrar Name Role Phone Gio Junior MD Primary Care Physician Encounter [facility] Date(s): 04/08/24 - 04/08/[address] [address]- Discharge Disposition: Transferred to short-term general hospit Attending Physician: Ruiz Bacon MD Admitting Physician: Ruiz Bacon MD Referring Physician: Not on Staff, Referring MD Encounter Type: Disch ES Allergies, Adverse Reactions, Alerts No Known Allergies [...] PM EDT, Aerosol, Route to Pharmacy Electronically, [id number], [facility]/pharmacy #[id number], 160, cm, 01/12/23 10:12:00 EDT, [...] 3:09:00 PM EST, Route to Pharmacy Electronically, [facility]/pharmacy #[id number], Partial fill upon patient request if the [...] 11:50:43 AM EDT, Route to Pharmacy Electronically, [facility] 3 Start Date: 03/09/19 Status: Ordered Quantity: 30.0 Unit: tablet Repeat number: 2 Renvela 800 mg oral tablet = 1,600 mg, By Mouth, 3 times a day with meals, # 90 tablet, 2 Refills, Maintenance, 03/09/19 11:48:58 AM EDT, Tablet, [facility] 3 Start Date: 03/09/19 Status: Ordered Quantity: [...] Quantity: 30.0 Unit: capsule Repeat number: 1 Problem List Condition Confirmation Course Effective Dates Status H ealth Status Informant Nonischemic cardiomyopathy Confirmed Active CAD in [place] artery Confirmed Active ESRD on dialysis Confirmed Active x 4 Confirmed Active History of endometrial cancer Confirmed Active Hyperlipidemia Confirmed Active Hypertension Confirmed Active Multiple myeloma Confirmed Active Troponin level elevated Confirmed Active Results Radiology Reports * Exam Date Time Procedure Performing Provider Status 04/08/24 2:50 PM Chest Portable Christin Flores; Aut h (Verified) Notes: (Chest Portable) Reason For Exam: Shortness of Breath RESULT: Chest Portable Chest Portable Hx of Present Illness: pt to ed [facility] of abd discomfort. +weakness. had paracentesis on 11 had 2.6L drained. pt stated has incraesed swellign in abd. was told by provider to come to ER to get drained. pt has had increased weakness as well. deneis fever chills. pt is HD pt.; Reason: Shortness of Breath; Clinical Question(s): CHF COMPARISON: 03/15/2024 FINDINGS: LINES AND TUBES: Right-sided Port-A-Cath tip at cavoatrial junction. LUNGS AND PLEURA: Low lung volumes with mild basilar atelectasis. Lungs are otherwise clear with no consolidation. No pleural effusion. No pneumothorax. HEART, MEDIASTINUM AND CATRACHITA: Mild prominence of the cardiac silhouette. Normal mediastinal and hilar contour. BONES AND SOFT TISSUES: No acute abnormality. IMPRESSION: No acute abnormality. WSN: [id number] Ordering Physician: Ruiz Bacon Dictated By: De Domingo MD Dictated Date/Time: 04/08/24 2:56 pm Reviewed By: De Domingo MD Signed By: De Domingo MD Signed Date/Time: 04/08/24 2:56 pm Transcribed By: BRONSON Transcribed Date/Time: 04/08/24 2:55 pm Vital Signs Most recent to oldest [Reference Range]: 1 2 3 Height 160 cm (04/08/24 9:43 AM) 160 cm (04/08/24 9:41 AM) Weight 64 kg (04/08/24 9:43 AM) Oxygen Saturation [94-100 %] 98 % (04/08/24 4:00 PM) 97 % (04/08/24 3:00 PM) 98 % (04/08/24 2:00 PM) Pulse Rate [55-90 bpm] 73 bpm (04/08/24 4:00 PM) 70 bpm (04/08/24 3:00 PM) 73 bpm (04/08/24 2:00 PM) Blood Pressure [90-138/55-84 mm Hg] 119/74mm Hg (04/08/24 4:00 PM) 123/74mm Hg (04/08/24 3:00 PM) 125/78mm Hg (04/08/24 2:00 PM) Respiratory Rate [16-30 br/min] 17 br/min (04/08/24 4:00 PM) 18 br/min (04/08/24 3:00 PM) 17 br/min (04/08/24 2:00 PM) Temperature [96.8-100.4 DegF] 97.6 DegF (04/08/24 2:00 PM) 97.8 DegF (04/08/24 9:41 AM) Mode of Delivery (Oxygen) Room air (04/08/24 4:00 PM) Room air (04/08/24 3:00 PM) Room air (04/08/24 2:00 PM) Temperature Route Oral (04/08/24 9:41 AM) Dry Weight 64 kg (04/08/24 9:43 AM) 64 kg (04/08/24 9:41 AM) Weight Obtained Via Patient/family state d (04/08/24 9:43 AM) Social History Social History Type Response Smoking Status Former smoker; Other : late teens early 20's; entered on: 03/25/14 Sex Sex Representation Female (finding) Patient Care team information Care Team Personnel Name: Jennifer Otoole Position: [facility] Onco RN Member Role: Primary Care Nurse Name: Silvia Newberry RN Position: [facility] RN Member Role: Primary Care Nurse Name: Naveen Mcgrath RN Position: [facility] RN Member Role: Primary Care Nurse Name: Juani Celestin [place] Position: [facility] Onco RN Member Role: Primary Care Nurse Name: Vanessa Arana RN Position: [facility] RN Member Role: Primary Care Nurse Name: Orquidea Mtz RN Position: [facility] RN Member Role: Primary Care Nurse Name: Slick Garcia RN Position: [facility] RN Member Role: Primary Care Nurse Name: Maryam Mejía RN Position: [facility] Onco RN Member Role: Primary Care Nurse Name: Smitha Godinez RN Position: [facility] Hospital Colorist Member Role: Primary Care Nurse Name: Brandi Frausto RN Position: [facility] SN RN Member Role: Primary Care Nurse Name: Fadia Alexandre RN Position: [facility] Onco RN Member Role: Primary Care Nurse Name: Breana White Position: [facility] Outreach Member Role: Lifetime Consulting Physician Name: Carolyn Parrish NP Position: [facility] Associate Professional Member Role: Lifetime Consulting Provider Address: [address] [facility] [address] [facility] [place] [address]- Telecom: Name: Ron Lazcano MD Position: [facility] Renal MD Member Role: Lifetime Consulting Physician Address: [address] [facility] [place] [address]- Telecom: Name: Suni Peters DO Position: [facility] Renal MD Member Role: Lifetime Consulting Physician Address: [address] [facility] [address] Telecom: Name: Nasra Jalloh RN Position: [facility] RN Member Role: Primary Care Nurse Name: Leslie Flores RN Position: [facility] SN RN Member Role: Primary Care Nurse Name: Kadeem Borrego DO Position: [facility] Renal MD Member Role: Lifetime Consulting Physician Address: [address] [place] [address] [address] [facility] [place], [place] [address] Telecom: Name: Patricia Faustin RN Position: [facility] RN Member Role: Primary Care Nurse Name: Delmer Gardner RN Position: [facility] RN Member Role: Primary Care Nurse Name: Fidencio Meyers RN Position: [facility] RN Member Role: Primary Care Nurse Name: Mustapha Gao MD Position: [facility] Renal MD Member Role: Lifetime Consulting Physician Address: [address] [facility] [address] Telecom: Name: Hafsa Cervantes RN Position: [facility] Onco RN Member Role: Primary Care Nurse Name: Puneet Garibay RN Position: [facility] RN Member Role: Primary Care Nurse Name: Angelina Quintana LPN Position: [facility] RN Member Role: Primary Care Nurse Name: Ratna Flores RN Position: [facility] Onco RN Member Role: Primary Care Nurse Name: Wendi Naidu RN Position: [facility] RN Member Role: Primary Care Nurse Name: Kathy Suarez RN Position: [facility] RN Member Role: Primary Care Nurse Name: Dana Messina RN Position: [facility] SN RN Member Role: Primary Care Nurse Name: Yany Foote RN Position: [facility] RN Member Role: Primary Care Nurse Name: Gio Junior MD Position: [facility] Physician - Primary Care Member Role: PCP Address: [address] [place] [address] Gio ContrerasWilfred [place], [place] [address] Telecom: Name: Tiffani Pozo RN Position: [facility] Hospital Colorist Member Role: Primary Care Nurse Name: Uday Foreman RN Position: [facility] RN Member Role: Primary Care Nurse Name: Juani Simpson RN, I Position: [facility] RN Member Role: Primary Care Nurse Care Team Related Persons Name: BROWNLEE NEPTALI Name: LOW WRAY Insurance Providers Guarantor name: MIMI WRAY Health Plan Information #: 2 Payer: MEDEX Member Number: [id number] Policy Number: NA Group Number: [id number] Health Plan Information #: 1 Payer: MEDICARE PART B OUTPT Member Number: [id number] Policy Number: NA Group Number: NA
--- OUTSIDE RECORDS SUMMARY | 2024-04-17 12:16 | XMS_ITS | Continuity of Care Document ---
Author Organization [facility] Address [address] [place] [address]- Care Team Providers Care Machine Oiler Name Role Phone Vernon ANTOINE, Gio Rosales Primary Care Physician [phone] Encounter [facility] Date(s): 02/27/24 - 03/28/24 [facility] Care [address] [place] [id number] Encounter Type: Triage Allergies, Adverse Reactions, Alerts No Known Allergies [...] PM EDT, Aerosol, Route to Pharmacy Electronically, [id number], [facility]/pharmacy #[id number], 160, cm, 01/12/23 10:12:00 EDT, Height, [...] Quantity: 30.0 Unit: tablet Repeat number: 1 calcitriol 0.25 mcg oral [...] 3:09:00 PM EST, Route to Pharmacy Electronically, [facility]/pharmacy #[id number], Partial fill upon patient request if the [...] 11:50:43 AM EDT, Route to Pharmacy Electronically, [facility] 3 Start Date: 03/09/19 Status: Ordered Quantity: 30.0 Unit: tablet Repeat number: 2 Renvela 800 mg oral tablet = 1,600 mg, By Mouth, 3 times a day with meals, # 90 tablet, 2 Refills, Maintenance, 03/09/19 11:48:58 AM EDT, Tablet, [facility] 3 Start Date: 03/09/19 Status: Ordered [...] Informant Nonischemic cardiomyopathy Confirmed Active CAD in [place] artery Confirmed Active ESRD on dialysis Confirmed Active x 4 Confirmed Active History of endometrial cancer Confirmed Active Hyperlipidemia Confirmed Active Hypertension Confirmed Active Multiple myeloma Confirmed Active Troponin level elevated Confirmed Active Social History Social History Type Response Smoking Status Former smoker; Other : late teens early 20's; entered on: 03/25/14 Sex Sex Representation Female (finding) Patient Care team information Care Team Personnel Name: Jennifer Otoole Position: [facility] Onco RN Member Role: Primary Care Nurse Name: Silvia Newberry RN Position: S RN Member Role: Primary Care Nurse Name: Naveen Mcgrath RN Position: S RN Member Role: Primary Care Nurse Name: Juani Celestin MA Position: S Onco RN Member Role: Primary Care Nurse Name: Vanessa Arana RN Position: [facility] RN Member Role: Primary Care Nurse Name: Orquidea Mtz RN Position: [facility] RN Member Role: Primary Care Nurse Name: Slick Garcia RN Position: [facility] RN Member Role: Primary Care Nurse Name: Maryam Mejía RN Position: [facility] Onco RN Member Role: Primary Care Nurse Name: Smitha Godinez RN Position: [facility] Hospital Air Conditioning Insulation Installer Member Role: Primary Care Nurse Name: Brandi Frausto RN Position: [facility] SN RN Member Role: Primary Care Nurse Name: Fadia Alexandre RN Position: [facility] Onco RN Member Role: Primary Care Nurse Name: Breana White Position: [facility] Outreach Member Role: Lifetime Consulting Physician Name: Shivani HUMIDIFIER MAINTENANCE WORKERCarolyn Position: [facility] Associate Professional Member Role: Lifetime Consulting Provider Address: [address] [place], [place] [address] [address] Telecom: Name: Ron Lazcano MD Position: [facility] Renal MD Member Role: Lifetime Consulting Physician Address: [address] [place], [place] [address] [place] [address]- Telecom: Name: Suni Peters DO Position: [facility] Renal MD Member Role: Lifetime Consulting Physician Address: [address] [place] [address] [facility] [place] [address]- Telecom: Name: Nasra Jalloh RN Position: [facility] RN Member Role: Primary Care Nurse Name: Leslie Flores RN Position: [facility] SN RN Member Role: Primary Care Nurse Name: Kadeem Borrego DO Position: [facility] Renal MD Member Role: Lifetime Consulting Physician Address: [address] [place] [address] [address] [facility] [place] [address]- [place] Telecom: Name: Patricia Faustin RN Position: [facility] RN Member Role: Primary Care Nurse Name: Delmer Gardner RN Position: [facility] RN Member Role: Primary Care Nurse Name: Elisa Barraza RN Position: [facility] RN Member Role: Primary Care Nurse Name: Fidencio Meyers RN Position: [facility] RN Member Role: Primary Care Nurse Name: Mustapha Gao MD Position: [facility] Renal MD Member Role: Lifetime Consulting Physician Address: [address] [place] [address] [facility] [place] [address]- Telecom: Name: Hafsa Cervantes RN Position: [facility] Onco RN Member Role: Primary Care Nurse Name: Puneet Garibay RN Position: [facility] RN Member Role: Primary Care Nurse Name: Angelina Quintana LPN Position: [facility] RN Member Role: Primary Care Nurse Name: Ratna Flores RN Position: [facility] Onco RN Member Role: Primary Care Nurse Name: Wendi Naidu RN Position: [facility] RN Member Role: Primary Care Nurse Name: Dana Messina RN Position: [facility] SN RN Member Role: Primary Care Nurse Name: Yany Foote RN Position: [facility] RN Member Role: Primary Care Nurse Name: Gio Junior MD Position: [facility] Physician - Primary Care Member Role: PCP Address: [address] [place] [address] [place] [address]- Telecom: Name: Tiffani Pozo RN Position: [facility] Hospital Air Conditioning Insulation Installer Member Role: Primary Care Nurse Name: Juani Simpson RN, I Position: [facility] RN Member Role: Primary Care Nurse Care Team Related Persons Name: NEPTALI BROWNLEE Name: LOW WRAY Insurance Providers Guarantor name: MIMI WRAY Health Plan Information #: 1 Payer: MEDICARE PART B OUTPT Member Number: NA Policy Number: NA Group Number: NA Health Plan Information #: 2 Payer: MEDEX Member Number: NA Policy Number: NA Group Number: NA
--- OUTSIDE RECORDS SUMMARY | 2024-04-17 12:17 | XMS_ITS | Continuity of Care Document ---
Author Organization [facility] ter Address [address] [place] [id number] Care Team Providers Care Wrap Yarn Sorter Name Role Phone Vernon ANTOINE, Gio Rosales Primary Care Physician [phone] Encounter [facility] Date(s): 03/16/24 - 03/20/[address] [id number] Discharge Disposition: A-D/C Home Attending Physician: Chantel Bran MD Admitting Physician: Raymundo ANTOINE, Constantino Arellano Referring Physician: Not on Staff, Referring MD [...] PM EDT, Aerosol, Route to Pharmacy Electronically, [id number], [facility]/pharmacy #[id number], 160, cm, 01/12/23 10:12:00 [...] 3:09:00 PM EST, Route to Pharmacy Electronically, [facility]/pharmacy #[id number], Partial fill upon patient request [...] 11:50:43 AM EDT, Route to Pharmacy Electronically, [facility] 3 Start Date: 03/09/19 Status: Ordered Quantity: 30.0 Unit: tablet Repeat number: 2 Renvela 800 mg oral tablet = 1,600 mg, By Mouth, 3 times a day with meals, # 90 tablet, 2 Refills, Maintenance, 03/09/19 11:48:58 AM EDT, Tablet, [facility] 3 Start Date: 03/09/19 Status: Ordered Quantity: [...] Informant Nonischemic cardiomyopathy Confirmed Active CAD in [place] artery Confirmed Active ESRD on dialysis Confirmed Active x 4 Confirmed Active History of endometrial cancer Confirmed Active Hyperlipidemia Confirmed Active Hypertension Confirmed Active Multiple myeloma Confirmed Active Troponin level elevated Confirmed Active Results Radiology Reports * Exam Date Time Procedure Performing Provider Status 03/18/24 3:00 PM IR End of Case Report Mo dified IR End of Case Report * Exam Date Time Procedure Performing Provider Status 03/18/24 3:[address]/ US Image Guide Drain Yash Ann; Armaan (Verified) Notes: (CT/ US Image Guide Drain) Reason For Exam: Paracentesis CT/ US Image Guide Drain Patient: MIMI WRAY Study Date: 03/18/2024 Performing: Penelope Carrizales PA-C Referring: : 1945 Age: 78 Gender: FEMALE PROCEDURE: US Guided Paracentesis INDICATION: Ascites and abdominal distension. EPIC TRAINER(S): Penelope Carrizales PA-C and Arjun Stover MD ANESTHESIA: Lidocaine was administered for local anesthesia TECHNIQUE: A limited ultrasound examination of the abdomen was performed. Informed consent was obtained. A suitable access site in the right lower abdominal wall was identified, marked, prepped and draped in standard sterile fashion. 1% lidocaine was administered for local anesthesia. A 5 Bahraini catheter was advanced into the peritoneal cavity. A post paracentesis scan was obtained. The catheter was removed and hemostasis obtained using manual compression. COMPLICATIONS: The patient tolerated the procedure well and left the department in stable condition. There were no immediate complications. FINDINGS: There is a moderate amount of abdominal ascites. An ultrasound guided paracentesis was successfully performed as described above. The post paracentesis scan demonstrates no significant residual abdominal ascites. PLAN: Routine post procedure monitoring. IMPRESSION: Successful ultrasound guided paracentesis with evacuation of 2600 ml of clear yellow ascites. A sample was sent for requested studies.Ascite fluid sent for labs and cytology. Signed By Penelope Carrizales PA-C On 03/19/2024 7:52:11 AM Signed By Penelope Carrizales PA-C On 03/19/2024 7:52:11 AM Penelope Carrizales PA-C Equipment : Jeff CARPIO 19 X 10 Dictated By: Penelope Whitehead Dictated Date/Time: 03/18/24 3:00 pm Reviewed By: Penelope Whitehead Signed By: Penelope Whitehead Signed Date/Time: 03/18/24 3:00 pm Transcribed By: PHOEBE Transcribed Date/Time: 03/18/24 3:00 pm Vital Signs Most recent to oldest [Reference Range]: 1 2 3 Height 152.46 cm (03/20/24 11:07 AM) 152.46 cm (03/20/24 9:06 AM) 152.46 cm (03/19/24 10:25 PM) Weight 58.2 kg (03/20/24 6:52 AM) 55.4 kg (03/19/24 6:10 AM) 59 kg (03/17/24 4:54 AM) Oxygen Saturation [94-100 %] 100 % (03/20/24 11:07 AM) 99 % (03/20/24:06 AM) 100 % (03/20/24 6:00 AM) Pulse Rate [55-90 bpm] 69 bpm (03/20/24 11:07 AM) 71 bpm (03/20/24: AM) 70 bpm (03/20/24 6:00 AM) Body Mass Index [18.5-24.99 kg/m2] 23.83 kg/m2 (03/19/24 6:10 AM) 25.38 kg/m2 *H* (03/17/24 4:54 AM) 23.83 kg/m2 (03/16/24 3:21 AM) Blood Pressure [90-138/55-84 mm Hg] 113/82mm Hg (03/20/24:07 AM) 114/70mm Hg (03/20/24: AM) 113/74mm Hg (03/20/24 6:00 AM) Respiratory Rate [16-30 br/min] 18 br/min (03/20/24 9:06 AM) 18 br/min (03/20/24 6:00 AM) 20 br/min (03/19/24 10:25 PM) Temperature [96.8-100.4 DegF] 97.6 DegF (03/20/24 9:06 AM) 97.3 DegF (03/20/24 6:00 AM) 97.7 DegF (03/19/24 10:25 PM) Mode of Delivery (Oxygen) Room air (03/20/24 11:07 AM) Room air (03/20/24 9:06 AM) Room air (03/20/24 6:00 AM) Blood pressure sites Arm, right (03/20/24 11:07 AM) Arm, right (03/20/24:06 AM) Arm, left (03/20/24 6:00 AM) Temperature Route Oral (03/20/24 9:06 AM) Oral (03/20/24 6:00 AM) Oral (03/19/24 10:25 PM) Dry Weight 55.4 kg (03/16/24 3:21 AM) Weight Obtained Via Standing scale (03/20/24 6:52 AM) Bed scale (03/17/24 4:54 AM) Bed scale (03/16/24 3:21 AM) Dry Weight Obtained Via Bed scale (03/16/24 3:21 AM) Social History Social History Type Response Smoking Status Former smoker; Other : late teens early 20's; entered on: 03/25/14 Sex Sex Representation Female (finding) Note * Event Display: Lab Data & Pts Medical History Authored Date: * Angelina Quintana LPN: PERFORM Event Display: Discharge/Transfer Note Hospital Authored Date: [id number] Nursing Discharge Note Entered On: 03/20/2024 14:40 EST Performed On: 03/20/2024 14:20 EST by Angelina Quintana LPN Nursing Discharge Note 2 Discharge Time : 03/20/2024 14:20 EST Discharge Level of Care at Discharge : Home/[facility]/Foster Care Patient Left Unit Via : Wheelchair Patient Accompanied Off Unit with : Significant other DC Instructions Provided & Signed by Pt : Yes Patient Understands D/C Instructions : Yes Patient Instructions Discharge Signed : Yes Did Pt have Specialty Bed or Wound Vac : No Angelina Quintana LPN - 03/20/2024 14:39 EST * Martita Funk MD: PERFORM Event Display: Discharge/Transfer Note Hospital Authored Date: [id number] Patient: ??MIMI WRAY ? Age:??78 Years?Sex:??Female?:??1945?? 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) Chronic HFrEF (heart failure with reduced ejection fraction) (I50.22) Chronic GERD (K21.9) CAD in [place] artery (I25.10) Valvular heart disease (I38) Ascites (R18.8) _ Discharge Medications Albuterol (albuterol CFC free 90 mcg/inh inhalation aerosol)?1?puff(s)?Inhalation?4 times a day?as needed?for 14?Days?as needed for wheezing Aspirin (aspirin 81 mg oral delayed release tablet)?81?Milligram?1?tablet?By Mouth?Daily Calcitriol (calcitriol 0.25 mcg oral capsule)?1?capsule?0.25?Microgram?By Mouth?Daily Carvedilol (carvedilol 12.5 mg oral tablet)?18.75?Milligram?1.5?tablet?By Mouth?Da basia?6.25?0.5 Clopidogrel (clopidogrel 75 mg oral tablet)?75?Milligram?1?tablet?By Mouth?Daily Famotidine (Pepcid AC Maximum Strength 20 mg oral tablet)?20?Milligram?By Mouth?Daily Losartan (losartan 25 mg oral tablet)?25?Milligram?1?tablet?By Mouth?Daily Rosuvastatin (rosuvastatin 5 mg oral capsule)?1?capsule?5?Milligram?By Mouth?Daily?Daily in AM Sevelamer (Renvela 800 mg oral tablet)?1,600?Milligram?By Mouth?3 times a day with meals ? Medications Started None Medications Discontinued None Doses Changed None PCP Follow-Up/Heads-Up - Admitted for new onset ascites. Paracentesis findings raise concern for??nephrotic syndrome. Please follow up to ensure resolution of abdominal distension. ?? Future Appointments Monday 10:30 AM EST ?? Where: Interventional Radiology Status: Pending Monday 3:00 PM EST ?? With: Rolando Grace Where: [facility] [place] [address] [place] [address]- Status: Pending Monday 10:20 AM EST ?? With: Paris ANTOINE, Murphy Berrios Where: [facility] [address] [place] [address]- Status: Pending Hospital Course Mimi Wray is a 77-year-old woman with history of multiple myeloma on bortezomib and dexamethasone therapy since 2019, infiltrative cardiomyopathy with severely reduced EF 18%, HTN, HLD, end-stage renal disease currently on hemodialysis TTS who presented with abdominal distention, found to have new onset ascites. S/p therapeutic/diagnostic paracentesis. SAAG <1.1, ascites unlikely from portal HTN or cardiac etiology. More likely from nephrotic syndrome given ESRD on HD. Renal consulted,plan for outpatient follow up. ?? Objective Assessment and Plan Ascites ??(R18.8) - New onset ESRD on dialysis (N18.6): Receives HD on TTS. Pt presenting with several days of abdominal distention, decreased bowel movements, and abdominal pain. Imaging with CT abdomen pelvis positive for moderate simple ascites, no evidence of bowel obstruction, liver normal attenuation/smooth contour.??No history of alcohol or liver disease. Etiology li stella multifactorial, including progression of ESRD and/or cardiomyopathy with severely reduced EF. Portal HTN less likely (given no history of liver disease) though possible given history of MM.?? SAAG 0.9. PT and INR wnl.??Ascites unlikely from portal HTN. More likely??2/2 nephrotic syndrome inthe setting of ESRD vs. cardiac etiology. ?? Recommendations: -??Follow up outpatient with dialysis - Follow up with PCP ?? 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 Appears euvolemic on exam. Cardiology consulted. Per prior documentation, patient not able to tolerate GDMT with Entresto and spironolactone due to low blood pressures during dialysis. ?? Recommendations: -??Continue DAPT with aspirin and Plavix -??Continue rosuvastatin -??GDMT: Continue Coreg and losartan -??Cardiology follow-up outpatient to optimize GDMT - Pt already has an appointment set up with EP for evaluation of ICD +/- MEASURER. ? Chronic conditions: Multiple myeloma (C90.00): Followed by heme/onc outpatient, receiving bortezomib and dexamethasone maintenance therapy. Per patient, she receives dexamethasone along with her infusion??once a week (usually on )??for two weeks then one week break. She received dexamethasone last week so is due for second dose this (03/21). ?? Recommendations: -??Resume dexamethasone and bortezomib per heme/onc plan. ?? GERD (gastroesophageal reflux disease) (K21.9):??Continue famotidine ? Vital Signs?? Temperature: 97.6 DegF (03/20/24 09:06:00) Temperature Route: Oral (03/20/24 09:06:00) Pulse Rate: 69 bpm (03/20/24 11:07:00) Respiratory Rate: 18 br/min (03/20/24 09:06:00) Systolic Blood Pressure: 113 mm Hg (03/20/24 11:07:00) Diastolic Blood Pressure: 82 mm Hg (03/20/24 11:07:00) Blood pressure sites: Arm, right (03/20/24 11:07:00) Mean Arterial Pressure: 92 mm Hg (03/20/24 11:07:00) Pulse Pressure: 31 mm Hg (03/20/24 11:07:00) Oxygen Saturation: 100 % (03/20/24 11:07:00) Mode of Delivery (Oxygen): Room air (03/20/24 11:07:00) Early Warning Score: 3 (03/20/24 11:11:20) ? . Physical Exam General: NAD. HEENT: Atraumatic, normocephalic. EOMI. No scleral icterus. Cardiovascular: RRR, S1 and S2 heard. No murmurs, gallops, or rubs appreciated. Respiratory:??Breath sounds clear to auscultation bilaterally. No wheezes/crackles. GI: Soft. Nondistended. Nontender. Normal bowel sounds present throughout abdomen.? MS: ??No edema or erythema in the lower extremities. Skin:??No rashes. Warm and dry. Skin intact. Neuro: ??No slurred speech. Moving all limbs spontaneously. Psych: Appropriate mood and affect. Consultants - Renal - Cardiology Pending Results AFB Culture w/Smear, Non-Blood ordered on 03/18/2024 Add On Lab Order ordered on 03/16/2024 Add On Lab Order ordered on 03/16/2024 Albumin Level ordered on 03/16/2024 Body Fluid Cult Aer/Anaer w/Gram ordered on 03/18/2024 Cytology Reports General ordered on 03/18/2024 Total Protein ordered on 03/16/2024 Patient Education Titles WebMD Ignite Patient Education - Ascites?? Patient Instructions You were admitted for abdominal distension due to fluid collection in the abdomen. The fluid was drained and tested to evaluate for cause of the fluid accumulation. It may have been due to end stage renal disease. Please follow up with your dialysis team to optimize dialysis. Please follow up with your PCP as well. Results Discharge Labs AFB/FUNGUS Acid Fast Smear NEGATIVE ()?? 03/18/2024 15:08 Acid Fast Cult Spec Source Peritoneal fluid ()?? 03/18/2024 15:08 AFB Spec Proc Concentration ()?? 03/18/2024 15:08 ? BACTERIOLOGY Gram Stain Isolate 1 Comment ()?? 03/18/2024 15:08 Gram Stain Isolate 2 No organisms seen ()?? 03/18/2024 15:08 Gram Stain Result Final report ()?? 03/18/2024 15:08 Body Fluid Culture Results Preliminary report ()?? 03/18/2024 15:08 Body Fluid Specimen Source Peritoneal fluid ()?? 03/18/2024 15:08 Body Fluid Culture Isolate 1 Comment ()?? 03/18/2024 15:08 ?? BLOOD COUNT & DIFF WBC 5.0 k/mm3 ()?? 03/20/2024 02:18 RBC 3.63 m/mm3 (Low)?? 03/20/2024 02:18 Hgb 11.6 Gm/dL (Low)?? 03/20/2024 02:18 Hct 34.7 % (Low)?? 03/20/2024 02:18 MCV 95.6 femtoliters ()?? 03/20/2024 02:18 MCH 32.0 pg ()?? 03/20/2024 02:18 MCHC 33.4 Gm/dL ()?? 03/20/2024 02:18 Platelet Count 193 k/mm3 ()?? 03/20/2024 02:18 RDW-SD 62.4 femtoliters (High)?? 03/20/2024 02:18 MPV 11.2 femtoliters ()?? 03/20/2024 02:18 Nucleated RBC (Automated) 0.0 #/100 WBC'S ()?? 03/20/2024 02:18 Abs. NRBC 0.0 k/mm3 ()?? 03/20/2024 02:18 ?? CHEM GENERAL Sodium 132 mmol/L (Low)?? 03/20/2024 02:18 Potassium 4.1 mmol/L ()?? 03/20/2024 02:18 Chloride 93 mmol/L (Low)?? 03/20/2024 02:18 Bicarbonate Level 24 mmol/L ()?? 03/20/2024 02:18 Anion Gap 15 ()?? 03/20/2024 02:18 Glucose Level 107 mg/dL (High)?? 03/20/2024 02:18 Glucose, POC 132 mg/dL (High)?? 03/17/2024 17:19 BUN 38 mg/dL (High)?? 03/20/2024 02:18 Creatinine-Blood 4.99 mg/dL (High)?? 03/20/2024 02:18 Estimated GFR Creatinine 8 ML/MIN/1.73 M2 ()?? 03/20/2024 02:18 Calcium 8.3 mg/dL (Low)?? 03/20/2024 02:18 Phosphorus 3.8 mg/dL ()?? 03/20/2024 02:18 Magnesium 2.3 mg/dL ()?? 03/20/2024 02:18 Protein, Total 5.6 Gm/dL (Low)?? 03/16/2024 10:15 Albumin 3.6 Gm/dL ()?? 03/16/2024 10:15 ? COAG INR 1.1 ()?? 03/18/2024 11:00 Protime (PT) 11.3 seconds ()?? 03/18/2024 11:00 ?? FLUID STUDIES Color, Fluid YELLOW ()?? 03/18/2024 15:08 Appearance, Fluid CLEAR ()?? 03/18/2024 15:08 WBC, Fluid 248 per Cubic Millimeter ()?? 03/18/2024 15:08 RBC, Fluid <3000 per Cubic Millimeter ()?? 03/18/2024 15:08 Seg, Fluid 6 % ()?? 03/18/2024 15:08 Lymph, Fluid 30 % ()?? 03/18/2024 15:08 [place], Fluid 18 % ()?? 03/18/2024 15:08 Other, Fluid 46 % ()?? 03/18/2024 15:08 T. Protein, Fluid 3.5 Gm/dL ()?? 03/18/2024 15:08 LDH, Fluid 158 units/L ()?? 03/18/2024 15:08 Albumin, Fluid 2.7 Gm/dL ()?? 03/18/2024 15:08 Amylase, Fluid 55 units/L ()?? 03/18/2024 15:08 ?? URINE OTHER Est Creatinine Clearance 6.90 mL/min ()?? 03/20/2024 03:24 ? 30??minutes spent on discharge. ?? Patient seen and discussed with Dr. Bran. ?? Martita Funk MD Internal Medicine PGY1 Pager?? [phone] * Shant ANTOINE, Chantel Fulton: PERFORM Event Display: Discharge/Transfer Note Hospital Authored Date: Patient seen and discussed with Dr. Funk. Agree with findings, assessment and plan in this progressnote. * Event Display: Discharge/Transfer Note Hospital Authored Date: * Event Display: Discharge/Transfer Note Hospital Authored Date: * Angelina Quintana LPN: PERFORM Event Display: Patient Education/Instruction Authored Date: Inpatient Adult Discharge Instructions. [address] [address] Name: MIMI WRAY : 1945?? Visit: 03/16/2024 03:24?? Current Date: 03/20/2024 14:07 ?? Account: [id number]?? Inpatient Adult Discharge Instructions We would like [...] and their families. Surveys are administered by [employer] ?? If further treatment with your primary care physician or another doctor is recommended, it is important for you to keep the appointment. Call your primary care physician or return to the Emergency Department immediately if your condition worsens, fails to improve, or new symptoms develop. If you need to find a doctor, you can call [facility] QuickPay Link for a referral at [phone] or toll free at [phone]) or log in to [email or web address].. ?? [facility], in keeping with [facility] guidance, no longer requires face masks for [...] a health care chevy of your choosing. [email or web address] is a website that allows you to securely view your medical information including your hospital discharge summary, office visit summaries, medications and follow-up visits. You can also request appointments, renew medications, and request access to your medical information using a health care chevy of your choosing, or just ask a question. You can enroll at [email or web address] or register during your next office visit. You have been discharged from [facility], Patient Care Unit: S2??. If you have any questions regarding these instructions, including results of studies pending, afteryou leave, please call us and we will be happy to assist you 28/11. [facility] Your Care Team Attending Physician Shant ANTOINE, Chantel Fulton?? Consulting Providers Chantel Bran MD?? Discharging Providers Martita Funk MD Your Diagnosis Dependence on renal dialysis ESRD on dialysis Multiple myeloma, remission status unspecified Infiltrative cardiomyopathy Chronic HFrEF (heart failure with reduced ejection fraction) Chronic GERD CAD in [place] artery Valvular heart disease Ascites Tests Performed Below is a partial list of the tests performed during your hospitalization. You may have had other tests and procedures not included in this list. Please discuss all test results with your provider. AFB Culture w/Smear, Non-Blood?-- Results Pending -- Albumin Fluid Albumin Level?-- Results Pending -- AMYLASE FLUID Basic Metabolic Panel Body Fluid Cult Aer/Anaer w/Gram?-- Results Pending -- Body Fluid Culture Reflex CBC Cell Count and Differential Fluid GLUCOSE POC Gram Stain Result INR LDH Fluid Lytes Magnesium Level Phosphorus Level Protein Fluid PT (INR) Total Protein?-- Results Pending -- CT/ US Image Guide Drain AFB Culture w/Smear, Non-Blood?? Add On Lab Order?? Albumin Fluid?? Albumin Level (ALBUMIN)?? Amylase Fluid?? Basic Metabolic Panel?? Body Fluid Cult Aer/Anaer w/Gram?? CBC?? CT/ US Image Guide Drain?? Cell Count and Differential Fluid?? Cytology Reports General ()?? Electrolytes (Lytes)?? Glucose POC?? Gram Smear Result (Gram Stain Result)?? Gram Stain/Body Fluid Culture Reflex (Body Fluid Culture Reflex)?? INR?? LDH Fluid?? Magnesium Level?? Phosphorus Level?? Protein Fluid?? Total Protein?? Primary Care Provider Vernon ANTOINE, Gio Rosales? Advance Directive Health Care Proxy on File Yes - Health Care Proxy Discharge Vitals Temperature: 97.6 DegF Height: 152.46 cm Pulse Rate: 69 bpm Weight: 58.2 kg Respiratory Rate: 18 br/min Body Mass Index: 23.83 kg/m2 Systolic Blood Pressure: 113 mm Hg Body surface area: 1.53 Diastolic Blood Pressure: 82 mm Hg ?? Oxygen Saturation: 100 % ?? Studies Pending All studies ordered during this hospital stay have been completed unless listed below. Please discuss all pending results with your provider listed above in these instructions. ?? AFB Culture w/Smear, Non-Blood?? Add On Lab Order?? Albumin Level?? Body Fluid Cult Aer/Anaer w/Gram?? Cytology Reports General ()?? Total Protein?? What to do next Instructions From Your Doctor You were admitted for abdominal distension due to fluid collection in the abdomen. The fluid was drained and tested to evaluate for cause of the fluid accumulation. It may have been due to end stage renal disease. Please follow up with your dialysis team to optimize dialysis. Please follow up with your PCP as well. ?? Orders?? after seen by Attending MD, ??Attending will notify once pt seen., ??03/20/24 13:03:00 EST?? Scheduled Follow-Up Appointments Monday 10:30 AM EST ?? Where: Interventional Radiology Status: Pending Monday 3:00 PM EST ?? With: Rolando Grace Where: [facility] [place] [address] [place] [address]- Status: Pending Monday 10:20 AM EST ?? With: [place] ANTOINE, Murphy Berrios Where: [facility] [address] [place] [address]- Status: Pending Discharge Medications MIMI WRAY :1945 Visit Date:03/16/2024 Medications: Please continue your medications until treatment is completed or stopped by your provider. Medications not listed below should be discontinued. Discuss any questions related to medications with your provider. What How Much When Instructions Next Dose Unchanged Albuterol (albuterol CFC free 90 mcg/ inh inhalation aerosol) 1 puff(s) Inhalation 4 times a day as needed for as needed for wheezing Duration: 14 Days take as needed Unchanged Aspirin (aspirin 81 mg oral delayed release tablet) 1 tab(s) Oral Daily 03/21/24 9am Unchanged Calcitriol (calcitriol 0.25 mcg oral capsule) 1 capsule Oral Daily 03/21/24 9am Unchanged Carvedilol (carvedilol 12.5 mg oral tablet) 0.5 tab(s) Oral Daily 03/21/24 9am Unchanged Clopidogrel (clopidogrel 75 mg oral tablet) 1 tab(s) Oral Daily 03/21/24 9am Unchanged Famotidine (Pepcid AC Maximum Strength 20 mg oral tablet) 20 Milligram Oral Daily 03/21/24 9am Unchanged Losartan (losartan 25 mg oral tablet) 1 tab(s) Oral Daily 03/21/24 9am Unchanged Rosuvastatin (rosuvastatin 5 mg oral capsule) 1 capsule Oral Daily in the morning 03/21/24 9am Unchanged Sevelamer (Renvela 800 mg oral tablet) 1,600 Milligram Oral 3 times a day with meals 03/21/24 9am Prescription Given During Visit No new medications prescribed at time of discharge.?? Laboratory Results Below is a partial list of the most recent Laboratory test results done prior to this discharge. You may have had other tests and procedures not included in this list. Please discuss all test resultswith your provider. Est Creatinine Clearance - 6.90 mL/min (03/20/2024) Albumin Fluid (03/18/2024) ???Albumin, Fluid - 2.7 Gm/dL AMYLASE FLUID (03/18/2024) ???Amylase, Fluid - 55 units/L Basic Metabolic Panel (03/20/2024) ???Sodium - 132 mmol/L???Potassium - 4.1 mmol/L???Chloride - 93 mmol/L???Bicarbonate Level - 24 mmol/L???Anion Gap - 15???Glucose Level - 107 mg/dL???BUN - 38 mg/dL???Creatinine-Blood - 4.99 mg/dL???Estimated GFR Creatinine - 8 ML/MIN/1.73 M2???Calcium - 8.3 mg/dL Body Fluid Culture Reflex (03/18/2024) ???Body Fluid Culture Isolate 1 - Comment CBC (03/20/2024) ???WBC - 5.0 k/mm3???RBC - 3.63 m/mm3???Hgb - 11.6 Gm/dL???Hct - 34.7 %???MCV - 95.6 femtoliters???MCH - 32.0 pg???MCHC - 33.4 Gm/dL???Platelet Count - 193 k/mm3???RDW-SD - 62.4 femtoliters???MPV - 11.2 femtoliters???Nucleated RBC (Automated) - 0.0 #/100 WBC'S???Abs. NRBC - 0.0 k/mm3 Cell Count and Differential Fluid (03/18/2024) ???Color, Fluid - YELLOW???Appearance, Fluid - CLEAR???WBC, Fluid - 248 per Cubic Millimeter???RBC,Fluid - <3000 per Cubic Millimeter? ?Seg, Fluid - 6 %? ?Lymph, Fluid - 30 %? ?[place], Fluid - 18 %???Other, Fluid - 46 % GLUCOSE POC (03/17/2024) ???Glucose, POC - 132 mg/dL Gram Stain Result (03/18/2024) ???Gram Stain Isolate 1 - Comment???Gram Stain Isolate 2 - No organisms seen INR (03/18/2024) ???INR - 1.1???Protime (PT) - 11.3 seconds LDH Fluid (03/18/2024) ???LDH, Fluid - 158 units/L Lytes (03/16/2024) ???Sodium - 135 mmol/L???Potassium - 4.7 mmol/L???Chloride - 94 mmol/L???Bicarbonate Level - 23 mmol/L???Anion Gap - 18 Magnesium Level (03/20/2024) ???Magnesium - 2.3 mg/dL Phosphorus Level (03/20/2024) ???Phosphorus - 3.8 mg/dL Protein Fluid (03/18/2024) ???T. Protein, Fluid - 3.5 Gm/dL PT (INR) (03/18/2024) ???INR - 1.1???Protime (PT) - 11.8 seconds You will be contacted within 72 hours with your results. Allergies (NKA means No Known Allergies) NKA Problems Active Problems??(10) CAD in [place] artery?? ESRD on dialysis?? x 4?? History of endometrial cancer?? Hyperlipidemia?? Hypertension?? Multiple myeloma?? Nonischemic cardiomyopathy?? Social history?? Troponin level elevated?? Education Materials Below is the list of Educational Leaflet Providered with your Discharge Instructions. [employer] Ignite Patient Education - Ascites?? Valuables and Belongings I fully understand and agree that [facility] accepts no responsibility for all my personal [...] to send valuables and belongings home. ?? Date for Pt to Sign Valuables/Belongings: 03/16/24 17:44:00 ?? Other Discharge Information ? Case Management Discharge Plan?? Discharge Plan?? Discharge Level of Care at Discharge: Home/[facility] Care ?? Pulmonary Rehab Status?? Pulmonary Rehab Discharge Status?? [...] are strongly encouraged to quit. Please call [facility] QuickPay Link at [phone] or [phone] Kitchen ([phone]) or log in to [email or web address] for referrals to smoking cessation programs. ?? 507 Suicide & Crisis Lifeline is available 28/11 if you or someone you know needs to find a reason to keep living. By calling 764 you'll be connected to a skilled, trained counselor at a crisis center in your area. INPATIENT DISCHARGE INSTRUCTIONS SIGNATURE PAGE NILSAVINASHIE Location:[facility] Registration Date and Time:03/16/2024 03:24 EST Primary Care Physician: Vernon ANTOINE, Gio Rosales, Attending Physician: Shant ANTOINE, Chantel Fulton, I MIMI WRAY, have received the above patient education materials/instructions and have verbalized understanding. If ambulance or transport services are being used I further acknowledge being given a choice of service. ?? If you need to contact me, please call me at this number: . Patient/Inspector Filters Name: Patient/Inspector Filters Signature: Relationship to Patient: Witness Name/Signature: Date: * Martita Funk MD: PERFORM Event Display: Patient Education Leaflets Authored Date: [id number] Ascites ?? [id number] Ascites Ascites is when fluid collects in [...] more and help you find support: ??? [employer] at www.liverfoundation.org or 833-000-8224 ? Alcoholics Anonymous at www.aa.org to find [...] Chills ?? Last Reviewed Date: 2022 ?? [id number] [employer]. All rights reserved. This information is not intended as a substitute for professional medical care. Always follow your healthcare professional's instructions. ?? Admission evaluation note * Mikal ANTOINE, Dayday: PERFORM Event Display: Admission Note Authored Date: [id number] Patient: ??MIMI WRAY ? Age:??78 Years?Sex:??Female?:??1945?? History of Present Illness Mrs. 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 She denied any fever, confusion, shortness of breath.?? She is scheduled for dialysis today but this is the first time she has noticed her abdominal distention. In ER her vitals show blood pressure 130/70, heart rate 76, 98% on room air.?? Initial labs show hemoglobin 11.8, platelet count 229, creatinine 5.6.?? She was scheduled for dialysis today.?? Imaging with CT abdomen pelvis positive for moderate simple ascites, no evidence of bowel obstruction, liver normal attenuation/smooth contour.?? No history of alcohol Review of Systems as noted above Objective Measurements?? Height: 152.46 cm (03/16/24) Weight: 55.4 kg (03/16/24) Dry Weight: 55.4 kg (03/16/24) Body Mass Index: 23.83 kg/m2 (03/16/24) ? Vital Signs?? Temperature: 97.5 DegF (03/16/24 14:00:00) Temperature Route: Oral (03/16/24 14:00:00) Pulse Rate: 76 bpm (03/16/24 14:00:00) Respiratory Rate: 18 br/min (03/16/24 14:00:00) Systolic Blood Pressure: 134 mm Hg (03/16/24 14:00:00) Diastolic Blood Pressure: 79 mm Hg (03/16/24 14:00:00) Blood pressure sites: Arm, left (03/16/24 14:00:00) Mean Arterial Pressure: 99 mm Hg (03/16/24 03:21:00) Pulse Pressure: 55 mm Hg (03/16/24 14:00:00) Oxygen Saturation: 99 % (03/16/24 14:00:00) Mode of Delivery (Oxygen): Room air (03/16/24 14:00:00) Early Warning Score: 3 (03/16/24 14:53:33) ? Intake/Output? 03/16 03:24 03/16 07:00 03/15 07:00 03/14 07:00 03/13 07:00 ?? 03/16 16:14 03/16 16:14 03/16 06:59 03/15 06:59 03/14 06:59 Intake ?118 ?118 ?0 ?0 ?0 Output ? 2700 ? 2700 ?0 ?0 ?0 Net Total ?-2582 ?-2582 ?0 ?0 ?0 ? Physical Exam GENERAL:?Mildly ill-appearing, no acute cardiorespiratory distress HEART: Regular rate ??and ??regular rhythm, no murmurs, no clicks, no rubs , no gallops. CHEST: Right chest??dialysis catheter without??evidence of infection. ??Symmetric with respirations. No accessory muscle use, No wheezes, Positive bibasal crackles. ABDOMEN: Normoactive bowel sounds. Mild distention noted.?? GENITOURINARY: No CV angle tenderness. No suprapubic tenderness. No Chacon catheter in place.?? Rectal exam is deferred. MUSCULOSKELETAL: Range of motion full in all extremities , no obvious deformity , no increased warmth , no effusion??, no pedal edema VASCULAR: All pulses brisk and equal, Capillary refill time < 2sec LYMPHATIC: No cervical, axillary or inguinal adenopathy. Skin: Dry and thin. No evidence of cellulitis, no other major skin lesions?? NEUROLOGIC: No deficit on gross motor and sensory exam Alert and oriented to person, place, time, and situation Psychiatric: No delusions, hallucinations, SI or HI, very pleasant woman Assessment/Plan Diagnoses Ascites ??(R18.8) ?? Assessment:??Mrs. 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 Found to have ascites.? New onset Ascites.?? presented with abdominal distention noticed few days ago, decreased bowel movements and abdominal pain.??She denied any fever, confusion, shortness of breath.??Imaging with CT abdomen pelvis positivefor moderate simple ascites, no evidence of bowel obstruction, liver normal attenuation/smooth contour.??No history of alcohol. Most likely causes is possibly portal HTN due to Renal + cardiac.??- Will possibly need to be started on Lasix and spironolactone. Due to severity of cardiomyopathy will consult card for recs.? - Scheduled for Dialysis today - CT paracentesis ordered.?? - Consult cardiology - F/u paracentesis labs.? Infiltrative cardiomyopathy with severely reduced EF 18% CAD Valvular disease ? 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 Per cardiology note EP for consideration of ICD +/- MEASURER.? ?Previously turned down for defibrillator in 2019 when progression of her EF was improving .? - Continue Carvedlol 6.25 BID - Continue Aspirin/plavix - Contnue??losartan.?? - Cardiac monitoring and consult.? ESRD on dialysis (N18.6):?? Kidney care consultation Continue renal meds ?? Multiple myeloma (C90.00):? Hematology follow-up in the outpatient,??bortezomib and dexamethasone therapy since 2019, ?? GERD (gastroesophageal reflux disease) (K21.9):? Continue famotidine ?? VTE Prophylaxis:? Heparin subcu ?VTE Prophylaxis Assessment:??VTE Prophylaxis Ordered ?? Code Status:? Talked with the and patient at bedside, Confirmed DNR/DNI ?? Ongoing Medical Necessity:? Optimization of volume, paracentesis ?? Discharge Planning:? Estimated Discharge Date ? Histories Allergies Allergies ?(Active and Proposed Allergies Only) NKA? (Severity: Unknown severity, Onset: Unknown) ? Past Medical History/Problem List Active Problems(9) CAD in [place] artery ESRD on dialysis x 4 History of endometrial cancer Hyperlipidemia Hypertension Multiple myeloma Nonischemic cardiomyopathy Troponin level elevated ? Past Surgical History PRIYANKA-BSO Foot- bunion T+A ? Social History Alcohol Details:??Use: Never. Employment/School Details:??Status: Retired. Exercise Details:??Self assessment: Good condition. Home/Environment Details:??Living situation: Home/Independent. ??Lives with: Spouse. Nutrition/Health Details:??Diet: Regular. Sexual Details:??Gender identity: Female. Substance Abuse Details:??Use: Never. Tobacco Details:??Former smoker, Other: late teens early 20's. ? Psychosocial History ? Family History Mother: Arrhythmia; Cancer of lung; Thyroid disease Father: Diabetes mellitus type II; Liver disease Other: Liver disease Other: Cancer of breast (Aunt) ? Medications Home Medications Albuterol (albuterol CFC free 90 mcg/inh inhalation aerosol)?1?puff(s)?Inhalation?4 times a day?as needed?for 14?Days?as needed for wheezing Aspirin (aspirin 81 mg oral delayed release tablet)?81?Milligram?1?tablet?By Mouth?Daily Calcitriol (calcitriol 0.25 mcg oral capsule)?1?capsule?0.25?Microgram?By Mouth?Daily [...] day with meals ? Inpatient Medications Medications (22) Active SCHEDULED: (9) Aspirin 81 mg EC Tablet (aspirin 81 mg oral delayed release tablet) ??81 mg, By Mouth, Daily Calcitriol 0.25 mcg Capsule (calcitriol 0.25 mcg oral capsule) ??0.25 mcg, By Mouth, Daily Carvedilol 6.25 mg Tablet (carvedilol 12.5 mg oral tablet) ??6.25 mg, By Mouth, Daily Clopidogrel 75 mg Tablet (clopidogrel 75 mg oral tablet) ??75 mg, By Mouth, Daily Famotidine 20 mg Tablet (famotidine 20 mg oral tablet) ??20 mg, By Mouth, 2 times a day Insulin Lispro 100 units/mL Inj (Insulin LISPRO Sliding Scale) ??2-10 units, Subcutaneous Injection, 3 times a day before meals Losartan 25 mg Tablet (losartan 25 mg oral tablet) ??25 mg, By Mouth, Daily NaCl 0.9% Flush 3ml (NaCL 0.9% Flush) ??3 mL, IV Push, Every 8 hours Sevelamer Carbonate 800 mg Tablet (Renvela 800 mg oral tablet) ??1,600 mg, By Mouth, 3 times a day with meals CONTINUOUS: (0) PRN: (13) Acetaminophen 325 mg Tablet (Acetaminophen Tablet) ??650 mg, By Mouth, Every 4 hours Dextromethorphan-Guaifenesin 20 mg-200 mg/10 mL Liqu UD (Robitussin DM Liquid) ??10 mL, By Mouth, Every 4 hours Dextrose Inj Syringe (Dextrose 50% Inj Syringe (25Gm)) ??12.5 Gm, IV Push Slowly, Every 20 minutes Dextrose Inj Syringe (Dextrose 50% Inj Syringe (25Gm)) ??25 Gm, IV Push Slowly, Every 15 minutes Docusate Sodium 100 mg Capsule (Docusate Sodium Capsule) ??100 mg 1 capsule, By Mouth, 2 times a day Glucagon 1 mg Inj (Glucagon Inj) ??1 mg, Intramuscular, Once Glucose 40% Gel (15 Gm) (Glucose Gel) ??15 Gm, By Mouth, Every 20 minutes Glucose 40% Gel (15 Gm) (Glucose Gel) ??30 Gm, By Mouth, Every 20 minutes Melatonin 3 mg Tablet (Melatonin Tablet) ??3 [...] mg, Chew, 3 times a day ? Vaccinations and Immunoprophylaxis hepatitis B adult vaccine: 1 Unknown (04/13/20 07:00:00) hepatitis B adult vaccine: 1 Unknown (03/09/20 07:00:00) hepatitis B adult vaccine: 1 Unknown (01/20/20 08:00:00) hepatitis B adult vaccine: 1 Unknown (10/22/19 08:00:00) hepatitis B adult vaccine: 1 Unknown (02/25/19 08:00:00) hepatitis B adult vaccine: 1 Unknown (01/23/19 08:00:00) influenza virus vaccine, inactivated: 0.5 Unknown (02/09/22 08:00:00) influenza virus vaccine, inactivated: 0.7 Unknown (02/16/21 08:00:00) pneumococcal 13-valent vaccine: 0.5 mL (01/05/19 16:20:00) SARS-CoV-2 (COVID-19) Ad26 vaccine: 0.5 Unknown (08/07/20 08:00:00) ? Results Recent Labs BLOOD COUNT & DIFF WBC 7.6 k/mm3 ()?? 03/16/2024 10:15 RBC 3.72 m/mm3 (Low)?? 03/16/2024 10:15 Hgb 11.8 Gm/dL ()?? 03/16/2024 10:15 Hct 36.7 % ()?? 03/16/2024 10:15 MCV 98.7 femtoliters ()?? 03/16/2024 10:15 MCH 31.7 pg ()?? 03/16/2024 10:15 MCHC 32.2 Gm/dL (Low)?? 03/16/2024 10:15 Platelet Count 229 k/mm3 ()?? 03/16/2024 10:15 RDW-SD 64.8 femtoliters (High)?? 03/16/2024 10:15 MPV 11.5 femtoliters ()?? 03/16/2024 10:15 Nucleated RBC (Automated) 0.0 #/100 WBC'S ()?? 03/16/2024 10:15 Abs. NRBC 0.0 k/mm3 ()?? 03/16/2024 10:15 Abs. Neut 5.8 k/mm3 ()?? 03/15/2024 16:14 Abs. Lymph 0.5 k/mm3 (Low)?? 03/15/2024 16:14 Abs. [place] 1.1 k/mm3 (High)?? 03/15/2024 16:14 Abs. Eo 0.3 k/mm3 ()?? 03/15/2024 16:14 Abs. Baso 0.1 k/mm3 ()?? 03/15/2024 16:14 Neut % 75.1 % ()?? 03/15/2024 16:14 Lymph % 6.4 % (Low)?? 03/15/2024 16:14 [place] % 14.0 % (High)?? 03/15/2024 16:14 Eos % 3.6 % ()?? 03/15/2024 16:14 Baso % 0.6 % ()?? 03/15/2024 16:14 Imm Gran 0.3 % ()?? 03/15/2024 16:14 Abs. Imm Gran 0.0 k/mm3 ()?? 03/15/2024 16:14 ?? CHEM GENERAL Sodium 135 mmol/L ()?? 03/16/2024 10:15 Potassium 4.7 mmol/L ()?? 03/16/2024 10:15 Chloride 94 mmol/L (Low)?? 03/16/2024 10:15 Bicarbonate Level 23 mmol/L ()?? 03/16/2024 10:15 Anion Gap 18 (High)?? 03/16/2024 10:15 Glucose Level 107 mg/dL (High)?? 03/15/2024 16:14 Glucose, POC 92 mg/dL ()?? 03/16/2024 07:58 BUN 30 mg/dL (High)?? 03/15/2024 16:14 Creatinine-Blood 4.84 mg/dL (High)?? 03/15/2024 16:14 Estimated GFR Creatinine 8 ML/MIN/1.73 M2 ()?? 03/15/2024 16:14 Calcium 8.8 mg/dL ()?? 03/15/2024 16:14 Protein, Total 5.6 Gm/dL (Low)?? 03/16/2024 10:15 Albumin 3.6 Gm/dL ()?? 03/16/2024 10:15 Alkaline Phosphatase 76 units/L ()?? 03/15/2024 16:14 AST (SGOT) 23 units/L ()?? 03/15/2024 16:14 ALT (SGPT) 19 units/L ()?? 03/15/2024 16:14 Bilirubin, Total 0.4 mg/dL ()?? 03/15/2024 16:14 Bilirubin, Direct 0.3 mg/dL ()?? 03/15/2024 16:14 Bilirubin, Indirect 0.1 mg/dL ()?? 03/15/2024 16:14 ?? FLUID STUDIES Hold Other SPECIMEN DISCARDED AFTER 1 WEEK ()?? 03/15/2024 16:14 ?? HEME OTHER Hold Blue Top SPECIMEN DISCARDED AFTER 4 HOURS. ()?? 03/15/2024 16:14 ?? MISC. CHEMISTRY Hold Gel Top SPECIMEN DISCARDED AFTER 1 WEEK ()?? 03/15/2024 16:14 ?? URINE OTHER Est Creatinine Clearance 8.18 mL/min ()?? 03/15/2024 16:38 ?? VIROLOGY COVID-19 PCR Specimen Source NASAL ()?? 03/15/2024 15:47 COVID-19 PCR Result NEGATIVE ()?? 03/15/2024 15:47 ? Abnormal Labs ?? BLOOD COUNT & DIFF Abs. NRBC?0.0 k/mm3 ()?03/16/2024 10:15 MCHC?32.2 Gm/dL (Low)?03/16/2024 10:15 Nucleated RBC (Automated)?0.0 #/100 WBC'S ()?03/16/2024 10:15 RBC?3.72 m/mm3 (Low)?03/16/2024 10:15 RDW-SD?64.8 femtoliters (High)?03/16/2024 10:15 ?? CHEM GENERAL Anion Gap?18 (High)?03/16/2024 10:15 Chloride?94 mmol/L (Low)?03/16/2024 10:15 Protein, Total?5.6 Gm/dL (Low)?03/16/2024 10:15 ?? Note: Critical results are displayed in red. ? Blood Glucose Trend Glucose, POC: 92 mg/dL (03/16/24 07:58:00) Glucose, POC: 95 mg/dL (03/16/24 07:00:00) ? CBC, CBC w/Diff?? CBC?? WBC: 7.6 k/mm3 (10:15) RBC:??3.72 m/mm3??Low (10:15) Hct: 36.7 % (10:15) RDW-SD:??64.8 femtoliters??High (10:15) Nucleated RBC (Automated): 0 #/100 WBC'S (10:15) Abs. NRBC: 0 k/mm3 (10:15) ? BMP, Mg, and Phos Anion Gap:??18??High (10:15) Bicarbonate Level: 23 mmol/L (10:15) Chloride:??94 mmol/L??Low (10:15) Potassium: 4.7 mmol/L (10:15) Sodium: 135 mmol/L (10:15) ?? Coagulation Profile?? No qualifying data available. ?? LFT Albumin: 3.6 Gm/dL (10:15) ?? Urinalysis?? No qualifying data available. ? Blood Gases?? No qualifying data available. ?? Uric/LDH?? No qualifying data available. ? EKG study * Event Display: EKG Authored Date: Cardiology * Event Display: Cardiac Rhythm Strips Authored Date: Hospital Progress note * Angelina Quintana LPN: PERFORM, SIGN, VERIFY Event Display: Progress Note Hospital Authored Date: Patient: MIMI WRAY Age: 78 years Sex: Female : 1945 Associated Diagnoses: None Author: Angelina Quintana LPN Findings Problem Related to Falls Risk Assessment : Falls Data 03/20/2024 9:00 EST Fall Elimination No impairment Fall Agitation/Anxiety/Depression No impairment Fall Related Sign/Symptom/Condition None Fall Cognitive Limitations No impairment Fall Sensory and Physical Function Weak Plan: Fall Sensory and Physical Function Encourage safe activities to maintain strength & mobility, Perform strengthening exercises with the patient Fall High Risk for Injury None of the above Total Falls Risk Score 2 Fall Risk Level Low Risk Falls Prevention Plan for Low Risk Bed in lowest locked position, Provide patient/family falls prevention education, Evaluate footwear & ensure patient has non-skid slippers, Place personal care items & call robles within reach, Instruct patient/family not to get up without assistance, Supervise the patient when ambulating or making transfers, Check that needs are met to minimize attempts to get up, Hourly rounds, Ensure safe & uncluttered environment, Communicate falls risk to all providers . Nursing Data IV Lines. : IV Lines. 03/20/2024 6:00 EST Left Forearm 22 gauge 1 inch Peripheral IV Activity: Assess Peripheral IV Assess Compare Touch: A/C/T Done, no complications Peripheral IV Site Assessment: Clean, dry and intact, Flushes Well Peripheral IV Site Drainage: None Peripheral IV Dressing: Clean, dry and intact Peripheral IV Intervention: Flushed . Vital Signs : VITAL SIGNS SECTION 03/20/2024 11:07 EST Pulse Rate 69 bpm Systolic Blood Pressure 113 mm Hg Diastolic Blood Pressure 82 mm Hg Blood pressure sites Arm, right Mean Arterial Pressure 92 mm Hg Pulse Pressure 31 mm Hg Oxygen Saturation 100 % Mode of Delivery (Oxygen) Room air . Evaluation patient a&o x3, VSS, no c/o pain or SOB at this time. Right permacath clean dry and intact. pt makes needs be known, independent in room. Patient discharged home, eduacted on home meds and made aware of upcoming appt. escorted to car in wheel chair with and IV removed. . Discharge Information Case Management Discharge Plan : Case Management Discharge Plan Data 03/20/2024 14:20 EST Discharge Level of Care at Discharge Home/[facility] 03/20/2024 12:10 EST Discharge Level of Care at Discharge Home/[facility] Rehabilitation Discharge : Rehab Discharge Index 03/19/2024 6:07 EST Comments on treatment indicated Patient demonstrates independence c all functional ADL's. Rec d/c home once medically cleared Full chart review completed Yes Hospital course Hospital course Other findings Patient demonstrates independence c all functional ADL's. Rec d/c home once medically cleared. HEP handout provided and educated patient to perform hourly including AP, LAQ, GS, shoulder flexion, elbow flexion * Shivani WINSTON, Carolyn: PERFORM Event Display: Progress Note Hospital Authored Date: Patient: ??NILS MIMI ? Age:??78 Years?Sex:??Female?:??1945?? Attending:??Shant ANTOINE, Chantel Fulton Admission Date: 03/16/2024 ?? Subjective Patient seen and examined; events noted.?? No complaints to offer this morning. ? Objective Vital Signs (last 24 hrs) ?Last Charted Heart Rate Peripheral?69 bpm ??(MAR 20 11:07) Resp Rate?18 br/min ??(MAR 20 09:06) SBP?113 mm Hg ??(MAR 20 11:07) DBP?82 mm Hg ??(MAR 20 11:07) SpO2?100 % ??(MAR 20 11:07) Weight?58.2 kg ??(MAR 20 06:52) Height?152.46 cm ??(MAR 20 11:07) Intake?? Output?? Oral Fluids: 480 mL (13:00) Urine Count: 1 (04:00) ?? Stool Frequency: 0 (04:00) ?? Intake/Output? 03/16 03:24 03/20 07:00 03/19 07:00 03/18 07:00 03/17 07:00 ?? 03/20 11:34 03/20 11:34 03/20 06:59 03/19 06:59 03/18 06:59 Intake ? 1961 ?0 ?480 ?710 ?478 Output ? 5401 ?0 ? 2700 ?0 ?1 Net Total ?-3440 ?0 ?-2220 ?710 ?477 ? Urine Count ?9 ?0 ?2 ?4 ?3 ? Physical Exam General: NAD, AAOx4 HEENT: NCAT, MMM Neck: no JVD, neck supple Cardio: normal S1 snd S2, no MRG, RRR Resp: CTAB Abdo:??NT, ND Extremities: No peripheral edema Skin: No rashes or other abnormalities Neuro: Grossly intact ?? AFB/FUNGUS Acid Fast Smear NEGATIVE ()?? 03/18/2024 15:08 AFB Spec Proc Concentration ()?? 03/18/2024 15:08 ?? BACTERIOLOGY Body Fluid Culture Results Preliminary report ()?? 03/18/2024 15:08 Body Fluid Culture Isolate 1 Comment ()?? 03/18/2024 15:08 ?? BLOOD COUNT & DIFF WBC 5.0 k/mm3 ()?? 03/20/2024 02:18 RBC 3.63 m/mm3 (Low)?? 03/20/2024 02:18 Hgb 11.6 Gm/dL (Low)?? 03/20/2024 02:18 Hct 34.7 % (Low)?? 03/20/2024 02:18 MCV 95.6 femtoliters ()?? 03/20/2024 02:18 MCH 32.0 pg ()?? 03/20/2024 02:18 MCHC 33.4 Gm/dL ()?? 03/20/2024 02:18 Platelet Count 193 k/mm3 ()?? 03/20/2024 02:18 RDW-SD 62.4 femtoliters (High)?? 03/20/2024 02:18 MPV 11.2 femtoliters ()?? 03/20/2024 02:18 Nucleated RBC (Automated) 0.0 #/100 WBC'S ()?? 03/20/2024 02:18 Abs. NRBC 0.0 k/mm3 ()?? 03/20/2024 02:18 ?? CHEM GENERAL Sodium 132 mmol/L (Low)?? 03/20/2024 02:18 Potassium 4.1 mmol/L ()?? 03/20/2024 02:18 Chloride 93 mmol/L (Low)?? 03/20/2024 02:18 Bicarbonate Level 24 mmol/L ()?? 03/20/2024 02:18 Anion Gap 15 ()?? 03/20/2024 02:18 Glucose Level 107 mg/dL (High)?? 03/20/2024 02:18 BUN 38 mg/dL (High)?? 03/20/2024 02:18 Creatinine-Blood 4.99 mg/dL (High)?? 03/20/2024 02:18 Estimated GFR Creatinine 8 ML/MIN/1.73 M2 ()?? 03/20/2024 02:18 Calcium 8.3 mg/dL (Low)?? 03/20/2024 02:18 Phosphorus 3.8 mg/dL ()?? 03/20/2024 02:18 Magnesium 2.3 mg/dL ()?? 03/20/2024 02:18 ?? URINE OTHER Est Creatinine Clearance 6.90 mL/min ()?? 03/20/2024 03:24 ?? No qualifying data available ? Assessment/Plan Ms. Wray is a 78-year-old female with end-stage renal disease due to multiple myeloma, receiving maintenance in center hemodialysis via tunneled right IJ dialysis catheter every Monday, , Monday in [facility] with advanced systolic heart failure. She presented to [facility] 03/16 with a chief complaint of??worsening abdominal ascites and volume overload, most consistentwith likely cardiogenic etiology. ??There is no history of primary liver disease by report or chronic viral infection.?We have been consulted in order to help manage her dialysis needs while admitted. ?? 1. ESRD on HD - access: R IJ PermCath - schedule: T/T/S at [facility] - presented with volume overload ?? 2. Worsening Abdominal Pain - will aim to manage volume with dialysis to some degree, but ultimately I think the paracentesis is what is going to be needed - goals of care discussions will be required given the nature of these features, but hopefully we can try to manage her volume status safely as we have her fully evaluated for this ascites - recent echo in April shows severe biventricular heart failure ?? Plan - will do HD on T/T/S schedule while admitted - will consider intermittent UF as well to see if we can get volume status optimized -??s/p paracentesis with 2.6L removed - goals of care discussions important here ? Case discussed with Dr. Lazcano. Thank you for allowing us to participate in your patient's care. ?? Carolyn Parrish [facility]?? * Angelina Quintana LPN: VERIFY, PERFORM, SIGN Event Display: Progress Note Hospital Authored Date: Patient: MIMI WRAY Age: 78 years Sex: Female : 1945 Associated Diagnoses: None Author: Angelina Quintana LPN Findings Problem Related to Falls Risk Assessment 03/19/2024 9:00 EST Fall Elimination No impairment Fall Agitation/Anxiety/Depression No impairment Fall Related Sign/Symptom/Condition None Fall Cognitive Limitations No impairment Fall Sensory and Physical Function No impairment Fall High Risk for Injury None of the above Total Falls Risk Score 0 Fall Risk Level No Risk Falls Prevention Plan for Low Risk Bed in lowest locked position, Evaluate footwear & ensure patient has non-skid slippers, Instruct patient/family to request assistance with ambulatio, Supervisethe patient when ambulating or making transfers, Hourly rounds, Ensure safe & uncluttered environment, Communicate falls risk to all providers . Nursing Data IV Lines. 03/18/2024 9:56 EST Right Chest Tunneled Non-Valved ([place]vi[place], [place]) Central Line Activity: Assess Central Line Indication: Hemodialysis or plasmapheresis Central Line # of Lumens: Double Central Line Site Assessment: Skin clean and dry Central Line Site Drainage: None Central Line Dressing/Securement: Dry and intact Central Line Intervention: Standard access procedure followed Central Line Daily Discussion: Yes Left Forearm 22 gauge 1 inch Peripheral IV Activity: Assess Peripheral IV Assess Compare Touch: A/C/T Done, no complications Peripheral IV Site Assessment: Clean, dry and intact Peripheral IV Site Drainage: None Peripheral IV Dressing: Clean, dry and intact . Vital Signs : VITAL SIGNS SECTION 03/19/2024 16:18 EST Temperature 97.6 DegF Temperature Route Oral Pulse Rate 66 bpm Systolic Blood Pressure 106 mm Hg Diastolic Blood Pressure 73 mm Hg Blood pressure sites Arm, right Mean Arterial Pressure 84 mm Hg Pulse Pressure 33 mm Hg Oxygen Saturation 98 % Mode of Delivery (Oxygen) Room air . Evaluation pt A&o x4, VSS, pt independent in room. able to make needs be known. no c/o pain or SOB at thistime. on tele NS on RA. Pt went down to dialysis today with no problems. Right permacath dressing clean dry and intact. See biophysical for complete assessments. Safety maintained throughout shift, bed in low and locked position, call robles and personal items within reach.. Consult note * [place] ANTOINE, Angelia: PERFORM, MODIFY, MODIFY, MODIFY Event Display: Consultation Note Authored Date: Patient: ??MIMI WRAY ? Age:??78 Years?Sex:??Female?:??1945?? Patient Hx Cardiology Shared Clinical Summary 1.?? Nonischemic/ischemic??cardiomyopathy with history of LVEF as low??as 25-30% 02/2019?? --> LVEF 45-50% 11/2021 with neurohormonal therapy --> NOW LVEF 18% 01/2024. 2.?? CAD?? - Cardiac catheterization 07/18/23 at [facility] at [place], [place], which showed 50% LAD after the diagonal, no stenosis in LCx, thrombotic 90% stenosis followed by 70% stenosis in RCA, haziness at ostium of PDA appearing nonobstructive. RCA was treated with drug-eluting stent. 3.?? Valvular disease - Mild to moderate aortic regurgitation, mild aortic stenosis, moderate mitral regurgitation, mild to moderate pulmonic regurgitation, moderate to severe tricuspid valve regurgitation 4.?? Hyperlipidemia 5.?? Hypertension 6.?? ESRD was on PD but??now??on HD 4x/week -F-Yoon 7.?? IgG kappa and kappa light chain myeloma based on kidney biopsy without e/o TTR cardiac amyloid 8.?? History of endometrial cancer s/p hysterectomy in 2010 ?? Hospital admission in??[place] 06/20/23??- Initially presented with shortness of breath, nonproductive cough, and fatigue. Reportedly diagnosed with pneumonia one week prior and was given antibiotics.Work up was significant for pulmonary edema/pleural effusion, elevated troponin and elevated BNP, and anemia.?? Echocardiogram 2023??was performed showing??mildly dilated LV, normal LV wall thickness, LVEF 15-20%,??severe global??LV hypokinesis, grade 2??diastolic dysfunction, normal RV size, low normal RV function, moderately dilated??LA, mild to moderate??mitral regurgitation,??mild??tricuspid valve regurgitation, mild to moderate aortic valve regurgitation.?? She was treated with??fluid removal by hemodialysis. ??She was also started on losartan for GDMT.?? Elevated troponin was??not further evaluated??with ischemic evaluation, as??it was felt??to be??secondary to??renal failure. ?? Hospital admission in [place] 07/2023??- Initially presented with progressive dyspnea on exertion and orthopnea. She was diuresed by dialysis. GDMT was optimized and included carvedilol, Entresto, andspironolactone at discharge. Her evaluation included cardiac catheterization 07/18/23, which showed 50% LAD after the diagonal, no stenosis in LCx, thrombotic 90% stenosis followed by 70% stenosis in RCA, haziness at ostium of PDA appearing nonobstructive. RCA was treated with drug-eluting stent. History of Present Illness/Interval History Reason for consultation: Medication adjustment, new onset ascites Consulting physician: Dr. Mikal ANTOINE, [place] Outpatient hospital liaison: Dr. Napoles Consulted hospital liaison: ?? 78-year-old female with history of combined nonischemic/ischemic cardiomyopathy (EF 18% 01/2024), CAD s/p FAHAD to RCA with residual 50% LAD disease, valvular disease (mild to moderate AR, mild , moderate MR, mild to moderate TR, moderate to severe TR), hyperlipidemia, hypertension, ESRD on HD x 4, multiple myeloma on dexamethasone and bortezomib who presented to [facility] on 03/15 for evaluation of worsening abdominal distention, cardiology has been consulted for medication adjustment, new onset ascites. ?? Patient reports she was in usual state of health when she started noticing abdominal distention fewdays ago in addition to decreased bowel movements and mild abdominal pain.?? Due to this reason shecame to ED.?? Otherwise she denied any fever, chest pain, shortness of breath, palpitations, orthopnea, PND, lower extremity swelling or weight gain.?? Denied any recent changes in medications.?? Most recently she was seen at cardiology office and was advised to continue her usual medications that include aspirin, Plavix, Coreg, losartan and rosuvastatin.?? Patient reports previously she was started on Entresto and spironolactone which gave her side effects, and was taken off of it by her outpatient hospital liaison.?? She reports after dialysis today her abdominal distention is much better and overall feels well.?? She is scheduled for paracentesis tomorrow. ? In the ED patient presented vitally stable with blood pressure 116/77, afebrile, pulse rate 74, respiratory rate 14, 99% on room air.?? CT abdomen/pelvis with moderate simple ascites, no evidence of bowel obstruction.?? Chest x-ray with no acute abnormalities.?? EKG with normal sinus rhythm, LVH, QRS 126.?? No ischemic changes.?? Lab work showed CBC with Hb 11.8, HCT 37.5, platelet 230, NA 136, K4 .6, bicarb 26, BUN 30, creatinine 4.84, AST 23, ALT 19.?? Patient was evaluated by nephrology who recommended ultrafiltration dialysis and a total 2700 L was removed. Most recent vitals: Pulse 82, BP 119/75, 100% on room air, temperature 97.9.?? Cardiac medications:Aspirin, carvedilol 6.25 twice daily, Plavix 75 mg, losartan 25 mg ?? Prior cardiology workup Echocardiogram 01/26/2024: Severely reduced LVEF of 18%, diffuse hypokinesis without regional wall motion abnormalities.?? Grade 2 moderate diastolic dysfunction with pseudo normal LV filling pattern and increased LA pressures, RV dilated, RA dilated, LA moderately dilated mild to moderate AR, moderate MAC, moderate MR, mild to moderate TR, moderate to severe TR.?? Patient was evaluated by Dr. Napoles on 02/26 and it appears patient has not been able to tolerate GDMT due to low blood pressures during dialysis.?? Previously patient was on spironolactone and Entresto which was discontinued as patient was unable to tolerate it.?? Patient had also been referred to EP for BiV pacemaker and ICD. ?? At bedside: Patient is vitally stable and asymptomatic.?? No shortness of breath, chest pain, palpitations or any other symptoms Review of Systems An extensive review of system was conducted and everything was negative except the ones mentioned above Physical Exam Vitals & Measurements T:??97.7?F?? HR:??82??(Peripheral)?? RR:??18?? BP:??119/75?? SpO2:??100%?? HT:??152.46??cm?? WT:??55.4??kg?? BMI:??23.83?? Weight lb/oz: 122 lb 2 oz General: Patient in no acute distress?? HEENT: normocephalic, atraumatic Respiratory: bilateral equal air entry, clear to auscultation with no wheezes or crackles. Adequaterespiratory rate and effort on room air.?? CVS: regular rate and rhythm, S1 and S2 present, no murmurs, rubs or gallops. No JVD.?? Abdomen: Distended.?? Mildly tender on palpation. Extremities: no cyanosis, pulses present and equal bilaterally. . No edema noted b/l.?? Neuro: alert and oriented x3. Cranial nerves II-XII grossly intact. Moving all extremities spontaneously. Normal tones, following simple commands.?? Assessment/Plan Ascites Combined nonischemic/ischemic cardiomyopathy (EF 18% 01/2024) NYHA class II CAD s/p RCA??FAHAD??07/29 As per??patient's outpatient hospital liaison??patient has combined nonischemic/ischemic cardiomyopathy-her EF previously improved??and now has worsened??which could be related to bortezomib??that she is on??for??multiple myeloma. Patient's outpatient hospital liaison??has had ongoing conversation??with patient's oncologist regarding reducing the dose of??her??multiple myeloma medications.?? As per patient these doses have not been reduced yet. Etiology of patient's ascites??could be because of ESRD,??dexamethasone that she received for her multiple myeloma??and/or??advanced cardiomyopathy Currently she does not have any signs and symptoms of acute heart failure exacerbation??as she??is breathing comfortably on room air, laying flat??and does not appear to be volume overload on exam. ?? Recommendation -Continue home aspirin, Plavix and rosuvastatin -For GDMT: Recommend continuing patient's Coreg and losartan -Of note as per prior documentation patient was not able to tolerate GDMT with Entresto and spironolactone due to low blood pressures during dialysis. -Recommend outpatient follow-up with cardiology to optimize GDMT -She already has an appointment set up with EP for evaluation of ICD +/- MEASURER. ?? We will arrange for follow-up with patient's outpatient hospital liaison Allergies NKA Home Medications Albuterol: 1 puffs, Inhalation, 4 times a day, PRN (as needed for wheezing) Aspirin: 81 mg = 1 tablet, By Mouth, Daily Calcitriol: 0.25 mcg = 1 capsule, By [...] Mouth, 3 times a day with meals Hospital Medications Medications (22) Active SCHEDULED: (9) Aspirin 81 mg EC Tablet (aspirin 81 mg oral delayed release tablet) ??81 mg, By Mouth, Daily Calcitriol 0.25 mcg Capsule (calcitriol 0.25 mcg oral capsule) ??0.25 mcg, By Mouth, Daily Carvedilol 6.25 mg Tablet (Carvedilol) ??6.25 mg, By Mouth, 2 times a day Clopidogrel 75 mg Tablet (clopidogrel 75 mg oral tablet) ??75 mg, By Mouth, Daily Famotidine 20 mg Tablet (famotidine 20 mg oral tablet) ??20 mg, By Mouth, 2 times a day Insulin Lispro 100 units/mL Inj (Insulin LISPRO Sliding Scale) ??2-10 units, Subcutaneous Injection, 3 times a day before meals Losartan 25 mg Tablet (losartan 25 mg oral tablet) ??25 mg, By Mouth, Daily NaCl 0.9% Flush 3ml (NaCL 0.9% Flush) ??3 mL, IV Push, Every 8 hours Sevelamer Carbonate 800 mg Tablet (Renvela 800 mg oral tablet) ??1,600 mg, By Mouth, 3 times a day with meals CONTINUOUS: (0) PRN: (13) Acetaminophen 325 mg Tablet (Acetaminophen Tablet) ??650 mg, By Mouth, Every 4 hours Dextromethorphan-Guaifenesin 20 mg-200 mg/10 mL Liqu UD (Robitussin DM Liquid) ??10 mL, By Mouth, Every 4 hours Dextrose Inj Syringe (Dextrose 50% Inj Syringe (25Gm)) ??12.5 Gm, IV Push Slowly, Every 20 minutes Dextrose Inj Syringe (Dextrose 50% Inj Syringe (25Gm)) ??25 Gm, IV Push Slowly, Every 15 minutes Docusate Sodium 100 mg Capsule (Docusate Sodium Capsule) ??100 mg 1 capsule, By Mouth, 2 times a day Glucagon 1 mg Inj (Glucagon Inj) ??1 mg, Intramuscular, Once Glucose 40% Gel (15 Gm) (Glucose Gel) ??15 Gm, By Mouth, Every 20 minutes Glucose 40% Gel (15 Gm) (Glucose Gel) ??30 Gm, By Mouth, Every 20 minutes Melatonin 3 mg Tablet (Melatonin Tablet) ??3 [...] ??80 mg, Chew, 3 times a day Lab Results Cardiology Labs WBC: 7.6 k/mm3 (03/16/24) RBC:??3.72 m/mm3??Low (03/16/24) Hgb: 11.8 Gm/dL (03/16/24) Hct: 36.7 % (03/16/24) MCV: 98.7 femtoliters (03/16/24) MCH: 31.7 pg (03/16/24) MCHC:??32.2 Gm/dL??Low (03/16/24) Platelet Count: 229 k/mm3 (03/16/24) RDW-SD:??64.8 femtoliters??High (03/16/24) Nucleated RBC (Automated): 0 #/100 WBC'S (03/16/24) Abs. Neut: 5.8 k/mm3 (03/15/24) Abs. Lymph:??0.5 k/mm3??Low (03/15/24) Abs. [place]:??1.1 k/mm3??High (03/15/24) Abs. Eo: 0.3 k/mm3 (03/15/24) Abs. Baso: 0.1 k/mm3 (03/15/24) Neut %: 75.1 % (03/15/24) [place] %:??14 %??High (03/15/24) Eos %: 3.6 % (03/15/24) Baso %: 0.6 % (03/15/24) Imm Gran: 0.3 % (03/15/24) Abs. Imm Gran: 0 k/mm3 (03/15/24) Sodium: 135 mmol/L (03/16/24) Potassium: 4.7 mmol/L (03/16/24) Chloride:??94 mmol/L??Low (03/16/24) Bicarbonate Level: 23 mmol/L (03/16/24) Glucose Level:??107 mg/dL??High (03/15/24) BUN:??30 mg/dL??High (03/15/24) Creatinine-Blood:??4.84 mg/dL??High (03/15/24) Calcium: 8.8 mg/dL (03/15/24) Protein, Total:??5.6 Gm/dL??Low (03/16/24) Albumin: 3.6 Gm/dL (03/16/24) Alkaline Phosphatase: 76 units/L (03/15/24) AST (SGOT): 23 units/L (03/15/24) ALT (SGPT): 19 units/L (03/15/24) Bilirubin, Total: 0.4 mg/dL (03/15/24) Diagnostic Impression ECG ECG 12-Lead ?? 15:52:00 Ventricular Rate: 78 BPM Atrial Rate: 78 BPM P-R Interval: 182 ms QRS Duration: 126 ms Q-T Interval: 428 ms QTC Calculation(Bazett): 487 ms P [place]: 22 degrees R [place]: -44 degrees T [place]: 125 degrees Normal sinus rhythm Possible Left atrial enlargement Left ventricular hypertrophy with QRS widening and repolarization abnormality Cannot rule out Septal infarct (cited on or before 15-FEB-2023) Abnormal ECG When compared with ECG of 30-JAN-2024 14:41, Questionable change in initial forces of Anterior leads Confirmed by Hugh Payton ([id number]) on 03/16/2024 12:34:45 PM ?? Clay: Hugh Payton ?? Signed By: Hugh Payton MD ?? ECG 12-Lead ?? 15:52:00 Please click on pdf link to open report ?? Signed By: Hugh Payton MD Echo Echocardiogram - Complete ?? 13:31:52 Summary The left ventricle is severely dilated. The left ventricular wall thickness is upper normal. The LV systolic function is severely reduced . The left ventricular ejection fraction is 18 % by Seth???s biplane method. There is severe diffuse hypokinesis without regional wall motion abnormalities. Grade II, moderate diastolic dysfunction with pseudonormal LV filling pattern and increased LA pressure. The right ventricle is dilated. Right ventricular systolic function is moderately reduced. The left atrium is moderately dilated. The right atrium is dilated. There is mild dilation of the ascending aorta(3.7cm) . The aortic valve is trileaflet and moderately thickened and calcified. There is mild low flow aortic stenosis with a peak gradient of 11mmHg, a mean gradient of 6mmHg, and a calculated valve area of 1.4cm2. The obstructive index is 0.54. There is mild to moderate aortic regurgitation. There is moderate mitral annular calcification. The mitral valve appears mildly thickened. There is apical tethering of the mitral leaflets. There is moderate mitral regurgitation and no significant stenosis. There is mild to moderate pulmonic regurgitation. The tricuspid valve annulus is dilated. The tricuspid valve appears normal . There is moderate to severe tricuspid valve regurgitation. The inferior vena cava appears normal in size. Inferior vena cava inspiratory collapse is blunted . The pulmonary artery systolic pressure estimation is mildly elevated at 35-40 mmHg. ?? Comparison Comparison is made to the study of September 28, 2023. Left ventricular systolic function is worse since previous study, by biplane analysis, however, visually there does not appear to be significant change. RV systolic function appears more impaired. Pulmonary artery systolic pressure is less significantly elevated. Unchanged mitral regurgitation since previous study. Unchanged aortic regurgitation since previous study. Unchanged tricuspid regurgitation since previous study. ?? Signature ?? Signed By: Prabhakar Prieto MD Problem List/Past Medical History Ongoing CAD in [place] artery ESRD on dialysis x 4 History of endometrial cancer Hyperlipidemia Hypertension Multiple myeloma Nonischemic cardiomyopathy Troponin level elevated Procedure/Surgical History PRIYANKA-BSO T+A Foot- bunion Social History Alcohol Use: Never. Employment/School Status: Retired. Exercise Self assessment: Good condition. Home/Environment Living situation: Home/Independent. Lives with: Spouse. Nutrition/Health Diet: Regular. Sexual Gender identity: Female. Substance Abuse Use: Never. Tobacco Former smoker, Other: late teens early 20's. Family History Mother: Arrhythmia; Cancer of lung; Thyroid disease Father: Diabetes mellitus type II; Liver disease Other: Liver disease Other: Cancer of breast * Bibi ANTOINE, Stanley Lux: PERFORM Event Display: Consultation Note Authored Date: I saw the patient myself and performed physical examination.?? I spent substantial time on independent evaluation of the patient and discussed plan of care with the fellow DrWilfred?? [place]??I agree with assessment and plan as detailed in the note. * Event Display: Consultation Note Authored Date: CONSULTATION DATE: 03/16/2024 RENAL INITIAL VISIT/CONSULTATION REPORT PRIMARY CARE PROVIDER: Gio Junior M.D. REASON FOR CONSULTATION: Evaluation and management of end-stage renal disease. HISTORY OF PRESENT ILLNESS: Ms. Wray is a 78-year-old female with a history of end-stage renaldisease due to multiple myeloma who is more recently receiving in center hemodialysis every Monday, , Monday via right IJ tunneled [facility] and generalized fatigue. She last dialyzed on and appears to be quite compliant with that regimen. She has a history of severely reduced left ventricular ejection fraction of around 18% documented in January of this year and apparently has been developing increasing abdominal distention and ascites. She has no history of primary liver disease thatshe is aware of or that I can come across. She denies any fevers or chills, but she was notably dyspneic when I saw her today. I saw her on dialysis this morning. PAST MEDICAL HISTORY: Significant for chronic cardiomyopathy with most recent ejection fraction of 18% with known coronary artery disease with history of drug-eluting stent to the RCA as well as somemild to moderate aortic regurgitation, mild aortic stenosis, moderate pulmonary regurgitation and mo derate to severe tricuspid regurgitation. She also has history of hypertension, hyperlipidemia, IgGkappa light chain myeloma with negative TTR amyloid workup for the myocardium, history of endometrial cancer, status post hysterectomy 2010, and a history of end-stage renal disease for which she wasinitially started on peritoneal dialysis, but more recently transitioned over to in center hemodialysis via right IJ tunneled dialysis catheter. MEDICATIONS: Reviewed and include bortezomib for myeloma as well as carvedilol, aspirin, albuterol,Plavix, dexamethasone per chemotherapy protocol, losartan, Pepcid, Renvela and rosuvastatin. ALLERGIES: She has no known drug allergies. FAMILY HISTORY: Noncontributory. SOCIAL HISTORY: Negative for any active tobacco, alcohol or illicit drug use. PHYSICAL EXAMINATION: GENERAL: She is pleasant, but in mild respiratory distress. VITAL SIGNS: Temperature 97.1, pulse is 78, blood pressure 126/87, satting 98% on room air. No scleral icterus noted. HEENT: Oropharynx clear. Mucous membranes are moist. NECK: Supple. JVD was appreciable to the jaw. HEART: Regular. LUNGS: Showed rales at the bases. ABDOMEN: Distended with fluid shift. Inspector Filters of at least some moderate ascites, but nothing tense or focal in terms of tenderness to palpation. EXTREMITIES: Shows some mild ankle edema bilaterally. She has a right tunneled IJ dialysis catheterthat is clean, dry and intact at the exit site. NEUROLOGIC: Nonfocal. LABORATORY DATA: Shows sodium 136, potassium 4.6, chloride 95, bicarbonate 26, anion gap 15, BUN 30, creatinine 4.8 with albumin of 3.9. She has normal liver function tests. CBC shows a white count 7.7, hemoglobin 11.8, platelet count 230,000. I do not have a recent INR. Chest x-ray showed no acuteabnormality. CT of the abdomen and pelvis with oral contrast only showed moderate simple ascites. No evidence of bowel obstruction. Liver was normal in attenuation, smooth contour, no focal abnormalities, and no CT evidence of any biliary pathology or biliary ductal dilatation. Spleen was normal aswell. IMPRESSION AND PLAN: Ms. Wray is a 78-year-old female with end-stage renal disease due to multiple myeloma, receiving maintenance in center hemodialysis via tunneled right IJ dialysis catheter every Monday, , Monday in [facility] with advanced systolic heart failure,[facility] with worsening abdominal ascites and volume overload, most consistent with likely cardiogenic etiology. There is no history of primary liver disease by report or chronic viral infection. Her serum albumin level is remarkable at 3.9, although we do not have any other liver synthetic testing done such as PT/INR which might be worthwhile. 1. End-stage renal disease. -- Access is her right tunneled IJ dialysis catheter. -- Evidence of volume overload. We will plan for dialysis today with ultrafiltration per crit line. -- Hemoglobin level stable at 11.8. No indication for erythropoietin stimulating agents. -- Blood pressure stable and well controlled on goal directed medical therapy for her advanced systolic heart failure. 2. Worsening abdominal ascites with advanced systolic heart failure. -- We would consider checking PT, INR, as well as sending off fluid samples with therapeutic paracentesis just to make sure we are dealing with portal hypertension. -- We will aim to manage volume with dialysis to some degree, but ultimately I think the paracentesis is what is going to be needed. -- Goals of care discussions will be required given the nature of these features, but hopefully we can try to manage her volume status safely as we have her fully evaluated for this ascites. Thank you very much for allowing me to participate in Mimi's care. We will follow closely with you. Dictated by: Kadeem Borrego D.O. Signing Clinician: Kadeem Borrego D.O. Dictated: 03/16/2024 10:42:29 Transcribed: 04:55:33 AM Transcribed by: [facility] DocID: [id number] PRELIMINARY REPORT UNLESS MANUALLY/ELECTRONICALLY SIGNED Patient Care team information Care Team Personnel Name: Jennifer Otoole Position: [facility] Onco RN Member Role: Primary Care Nurse Name: Silvia Newberry RN Position: [facility] RN Member Role: Primary Care Nurse Name: Naveen Mcgrath RN Position: [facility] RN Member Role: Primary Care Nurse Name: Juani Celestin MA Position: [facility] Onco RN Member Role: Primary Care Nurse Name: Vanessa Arana RN Position: [facility] RN Member Role: Primary Care Nurse Name: Orquidea Mtz RN Position: [facility] RN Member Role: Primary Care Nurse Name: Slick Garcia RN Position: [facility] RN Member Role: Primary Care Nurse Name: Maryam Mejía RN Position: [facility] Onco RN Member Role: Primary Care Nurse Name: Smitha Godinez RN Position: [facility] [employer] In [employer]aper Member Role: Primary Care Nurse Name: Brandi Frausto RN Position: [facility] SN RN Member Role: Primary Care Nurse Name: Fadia Alexandre RN Position: [facility] Onco RN Member Role: Primary Care Nurse Name: Breana White Position: [facility] Outreach Member Role: [employer] Consulting Physician Name: Carolyn Parrish NP Position: [facility] Associate Professional Member Role: Lif[employer] Consulting Provider Address: [address] [place] [address] [address] [facility] [place] [place] [address]- Telecom: Name: Ron Lazcano MD Position: [facility] Renal MD Member Role: Lif[employer] Consulting Physician Address: [address] [facility] [place] [address]- Telecom: Name: Suni Peters DO Position: [facility] Renal Member Role: Lif[employer] Consulting Physician Address: [address] [place] [address] [facility] [place], [place] [address] Telecom: Name: Nasra Jalloh RN Position: [facility] RN Member Role: Primary Care Nurse Name: Leslie Flores RN Position: [facility] SN RN Member Role: Primary Care Nurse Name: Kadeem Borrego DO Position: [facility] Renal MD Member Role: Lifetime Consulting Physician Address: [address] [facility] [address] [facility] [place] [address]- Telecom: Name: Patricia Faustin RN Position: [facility] RN Member Role: Primary Care Nurse Name: Delmer Gardner RN Position: [facility] RN Member Role: Primary Care Nurse Name: Elisa Barraza RN Position: [facility] RN Member Role: Primary Care Nurse Name: Fidencio Meyers RN Position: [facility] RN Member Role: Primary Care Nurse Name: Mustapha Gao MD Position: [facility] Renal MD Member Role: Lifetime Consulting Physician Address: [address] [place] [address] [facility] [place] [address]- Telecom: Name: Hafsa Cervantes RN Position: [facility] Onco RN Member Role: Primary Care Nurse Name: Puneet Garibay RN Position: [facility] RN Member Role: Primary Care Nurse Name: Angelina Quintana LPN Position: [facility] RN Member Role: Primary Care Nurse Name: Ratna Flores RN Position: [facility] Onco RN Member Role: Primary Care Nurse Name: Wendi Naidu RN Position: [facility] RN Member Role: Primary Care Nurse Name: Dana Messina RN Position: [facility] SN RN Member Role: Primary Care Nurse Name: Yany Foote RN Position: [facility] RN Member Role: Primary Care Nurse Name: Gio Junior MD Position: [facility] Physician - Primary Care Member Role: PCP Address: [address] [place] [address] [place] [address]- Telecom: Name: Tiffani Pozo RN Position: [facility] Hospital Editor [employer]aper Member Role: Primary Care Nurse Name: Juani Simpson RN, I Position: [facility] RN Member Role: Primary Care Nurse Care Team Related Persons Name: NEPTALI BROWNLEE Name: LOW WRAY Insurance Providers Guarantor name: MIMI WRAY Health Plan Information #: 1 Payer: MEDICARE A INPT 25 Member Number: [id number] Policy Number: NA Group Number: TIFFANIE Health Plan Information #: 2 Payer: MEDEX Member Number: [id number] Policy Number: TIFFANIE Group Number: [id number]
== END 2024-04-15 05:47 | disposition home or self-care (01) ==
LOC: HO.MMNH1L 05:46
PROVIDERS: Visit Provider Nurse Practitioner
DX: N18.6 End stage renal disease (principal); E87.5 Hyperkalemia
CPT/HCPCS: 36415; 80053; 85025

== ENCOUNTER 2024-04-22 10:13 | Outpatient (REF) | payer MEDICARE, SELFPAY ==
[2024-04-22 05:40] LABS: MANUAL DIFF FLAG NO
[2024-04-22 06:21] LABS: Basophils Absolute Auto 0.1 X10*3/uL (0.0-0.2); Eosinophils Absolute Auto 0.3 X10*3/uL (0.0-0.4); Hemoglobin 9.9 g/dl (12.0-16.0); Imm Gran Abs Auto 0.02 X10*3/uL (0.00-0.03); Imm Gran Pct Auto 0.4 % (0.0-0.4); Lymphocytes Absolute Auto 0.5 X10*3/uL (1.2-4.9); Mean Corpuscular HGB Conc 31.9 g/dl (31.0-35.0); Mean Corpuscular Hemoglobin 31.6 pg (27.0-33.0); Mean Platelet Volume 11.7 fL (9.4-12.3); Monocytes Absolute Auto 0.8 X10*3/uL (0.1-1.2); Monocytes Percent Auto 14.8 % (2-11); Neutrophils Absolute Auto 3.7 x10*3/uL (2.0-8.3); Neutrophils Percent Auto 67.8 % (45-73); Platelet Count 207 X10*3/uL (160-400); Red Blood Count 3.13 X10*6/uL (4.20-5.50); Red Cell Distribution Width 18.5 % (11.0-16.0); White Blood Count 5.4 X10*3/uL (4.8-10.8)
[2024-04-22 06:40] LABS: Anion Gap 23 (12-20); Blood Urea Nitrogen 54 mg/dL (9-16); Calcium 8.2 mg/dL (8.4-10.2); Carbon Dioxide 21 mmol/L (22-29); Chloride 100 mmol/L (96-108); Glucose Random 118 mg/dL (60-115); Sodium 138 mmol/L (135-145)
[2024-04-22 06:41] LABS: Estimated Glomerular Filt Rate 5
[2024-04-22 07:20] LABS: Potassium 6.1 mmol/L (3.3-5.1)
== END 2024-04-22 10:14 | disposition home or self-care (01) ==
LOC: HO.MMNH1L 10:13
PROVIDERS: Visit Provider Nurse Practitioner
DX: N18.6 End stage renal disease (principal); E87.5 Hyperkalemia
CPT/HCPCS: 36415; 80048; 85025